=== PATIENT | female | born 1970 | race Caucasian/White ===

== ENCOUNTER → 2021-09-18 11:08 | Outpatient (CLI) | payer OTHER, SELFPAY ==
[2021-09-18 11:55] LABS: COVID19 -Nasal RAPID Negative (Negative)
== END ==
PROVIDERS: PCP Physician Assistant; Referring Provider Orthopaedic Surgery Orthopaedic Surgery of the Spine; Visit Provider Orthopaedic Surgery Orthopaedic Surgery of the Spine
DX: Z20.822 Contact with and (suspected) exposure to COVID-19 (principal)
CPT/HCPCS: 87635; C9803

== ENCOUNTER 2021-09-22 14:29 | Observation (INO) | payer OTHER, SELFPAY ==
[2021-09-21] VITALS (22 sets, daily range): BP systolic 96–146; BP diastolic 57–87; PULSE 73–105; RESP 10–20; TEMP 36.3–37; O2SAT 92–100; BMI 32.5
[2021-09-21] MEDS: LACTATED RINGERS 1,000 ML 42 ML IV ×3 (07:15→10:21)
--- NOTE | 2021-09-21 07:49 | PM.PREOP ---
Pre-operative Note COVID-19 COVID-19 status: Negative Result date/Date tested (Pos, Neg/Pending): 09/20/21 Criteria for continued procedure: Expected advancement of disease process, Possibility delay results in more complex future surgery or treatment, Increased loss of function, Continuing or worsening of significant or severe pain and Deterioration of the patient's condition or overall health Interval Note History & Physical reviewed/Exam performed by Physician: Yes Changes to H&P: No
[2021-09-21] MEDS: CEFAZOLIN 2 GM/100 ML PREMIX 100 ML IV ×3 (08:00→20:09)
--- NOTE | 2021-09-21 08:29 | SUR.OPER ---
Prone on spine table, head in foam head support, padded chest and pelvic supports, gel pad at knees, lower legs supported by pillows; nipples, genitalia and toes free of pressure, arms secured on foam padded arm boards at <90 degrees abduction. Tape over blanket at thigh secured to table.
[2021-09-21] MEDS: BUPIVACAINE LIPOSOME 266 MG/20 ML VIAL INJ (08:38)
[2021-09-21] MEDS: BUPIVACAINE 0.25% (PF) 30 ML, EPINEPHrine 0.3 MG INJ (08:40)
[2021-09-21] MEDS: ACETAMINOPHEN IV 1,000 MG/100 ML VIAL 400 MG IV (11:00)
--- NOTE | 2021-09-21 13:11 | DI.RAD.S_ITS ---
PROCEDURE: XR LUMBAR SPINE 2-3V INDICATIONS: L4-5, L5-S1 TLIF TECHNIQUE: Intraoperative fluoroscopic guidance, 3 images submitted COMPARISON: None. FINDINGS: 3 Intraoperative fluoroscopic images were obtained demonstrating changes from lumbar spine fusion with rods and pedicle screws and interbody spacers. IMPRESSION: Intraprocedural fluoroscopy was provided for guidance and anatomical localization. Please see the procedure report for further details. Dictated by: Apolinar Eaton M.D. on 09/21/2021 at 13:14 Approved by: Apolinar Eaton M.D. on 09/21/2021 at 13:17
--- NOTE | 2021-09-21 13:18 | P.OP_ITS ---
Operative Date/Time/Diagnoses Date of procedure: 09/21/21 Time of procedure: 07:45 Pre-op diagnosis: 1. History of L2-4 fusion with instrumentation 2. L4-5, L5-S1 spinal stenosis with radiculopathy 3. L4-5, L5-S1 spondylosis with radiculopathy Post-op diagnosis: same Procedure & Clinicians Procedure: 1. L4-5, L5-S1 posterolateral and posterior interbody fusion 2. L4-5, L5-S1 posterior interbody cage placement 3. L2-3, L3-4 posterior segmental instrumentation removal 4. L2-3, L3-4 revision laminectomy with exploration of fusion 5. L2-3, L3-4, L4-5, L5-S1 posterior segmental instrumentation with pedicle scr ew placement 6. L2-3 posterolatearl fusion 7. Byers of bone marrow from iliac crest through a separate incision 8. Utilization of microsurgical technique and operating microscope Same procedure as scheduled: Yes Indications: Patient has been having chronic back pain and worsening lumbar radiculopathy. Patient has history of lumbar fusion L2-4 10 years ago. Patient has been having progressively worsening back pain as well as leg pain over the last 2-3 years. Patient failed multiple conservative management with worsening pain weakness and numbness in her lower extremity. Patient has been having difficulty performing activity of daily living. After discussing risks benefits of treatment options, patient elected proceed with surgery. Surgeon: Hussain Millard Automatic Packer Operator: Ibeth Cortes Click Yes if Unassisted: No Anesthesia Type: General Operative Notes Closure Type: primary Specimen(s): none sent Prosthetic devices, grafts, tissues, transplants, or devices: Globus revolve screws, Rise cages Applied: catheter Estimated Blood Loss (mL): 300 Blood products transfused: none Procedure in detail: Patient was seen in the preoperative area. Risks and benefits of the surgery was discussed with the patient. Informed consent was obtained from the patient and placed in the chart. Surgical site was marked. Patient was taken to the operative room. General anesthesia was administered. Prophylactic antibiotic was given to the patient less than 30 min before the incision was made. Patient was placed into a prone position on the Deni table. Patient's back was then prepped and draped in the sterile fashion. Time-out was performed at this time. Using patient's previous scar incision was made over the L2-3 L3-4 interval on the left side. Fascia was incised in line with skin incision. Patient's previously placed hardware over the L2-3 L3-4 level was identified by dissecting down to the level the hardware using a Bovie and a Christensen. The locking caps which was removed using globus screwdriver. The locking jeanie was then removed from the tulips of the pedicle screws using a Destiny. The pedicle screws were then removed using the screwdriver. The screws were found to have good purchase. The Globus and MARS retractors was then placed into the wound and docked onto the L4, L5 lamina using C-arm guidance. Using microsurgical technique and operating microscope a laminectomy facetectomy was performed by removing the L4 and L5 lamina and the L4-5 L5-S1 facet. The disc space at L4-5 L5-S1 level was identified next. And a total diskectomy was performed at L4-5 L5-S1 level. The endplates were decorticated using a rasp and shaver. The total diskectomy and decortication was performed at L4-5 L5-S1 level in order to to accomplish a L4-5 L5-S1 fusion. The local bone from the laminectomy and facetectomy was saved for local bone grafting. After the total diskectomy and decortication was completed, Globus Trifecta bone graft material was combined with local bone that was harvested earlier. At this time, a separate skin is incision was made over the iliac crest. A Jamshidi needle was inserted into the iliac crest through a separate skin incision. 5 cc of bone marrow aspiration was obtained through the separate skin incision using a Jamshidi needle from the iliac crest. The bone marrow aspiration was combined with local bone and the Trifecta bone grafting material. The bone grafting material was placed into the L4-5 L5-S1 interbody space along with a expandable cage. The cage was expanded to its maximum height using the torque limiting screwdriver. At this time a mirror image incision was made on the right side. The fascia was incised in line with the skin incision. Patient's previously placed hardware on the left side was then removed in the same fashion as it was on the right side. The hardware was also found to have good purchase. The fusion mass on the left side was exposed by performing a right-sided hemilaminectomy at L2 and L3 level. The hemilaminectomy was performed using the Kerrison rongeur to undercut the lamina as well removing additional epidural scar tissue for purpose of decompressing the epidural space. The fusion mass was explored and was found have visible motion indicating pseudoarthrosis at L2-3 level. L3-4 level was found to have solid fusion without any signs of loosening. Globus MARS retractor was inserted and docked onto the L2-3 L4-5 L5-S1 posterolateral gutter. Using the power drill, posterior-lateral decortication was performed at L2-3 L4-5 L5-S1 level until bleeding cortical bone was identified. The remaining bone grafting material was placed into the L2-3 L4-5 L5-S1 posterior lateral gutter he order to accomplish posterolateral fusion at the L2-3 L4-5 L5-S1 level. Using the double C-arm technique, pedicle screws were placed into the L2 L3 L4 L5 and S1 pedicles bilaterally. This was done by placing the Jamshidi needle into the pedicles, then placing the guidewires over the Jamshidi needle, and finally placing the cannulated screws over the guidewires bilaterally. After the pedicle screws were placed, 2 titanium rods was locked into the heads of the pedicle screws using locking caps and torque limiting screwdriver. After all the hardware was placed, and confirmed with AP and lateral C-arm imaging, the wound was then irrigated with sterile normal saline and packed with Ray-Andreina gauze for 3 min to accomplish hemostasis. After the gauze was removed the deep fascia was closed with #1 Vicryl suture. The subcutaneous layer was closed with 2-0 Vicryl. The skin was closed with skin keiko. Patient tolerated the procedure well. There were no complications. Complications: none Post-operative Condition: stable Disposition: PACU Plan for aftercare: Admit to inpatient hospital
--- NOTE | 2021-09-21 13:50 | SUR.PHASEI ---
updated mother on pt recovery.
[2021-09-21] MEDS: OXYCODONE IR 5 MG TABLET PO ×2 (14:06→14:51)
[2021-09-21] MEDS: hydrOXYzine pamoate 25 MG CAPSULE 50 MG PO (14:07)
[2021-09-21] MEDS: HYDROMORPHONE 2 MG INJ IV ×5 (14:08→14:52)
--- NOTE | 2021-09-21 14:45 | SUR.PHASEI ---
Handoff to ADELAIDE Figueredo for lunch break Messaged Dr. Boyle for anxiety PRN
--- NOTE | 2021-09-21 15:41 | SUR.PHASEI ---
Pt A&Ox4, appears much more comfortable, VSS, Dressing C/D/I, CMS (+) bilat LE, and ready to transfer to room. Report called to receiving RN using SBAR with time allowed for questions. Pt transferred to room 205 with RN assist.
[2021-09-21] MEDS: NALOXONE 0.4 MG/ML VIAL IV (15:54)
[2021-09-21] MEDS: NALOXONE 0.4 MG/ML VIAL 0.2 MG IV ×4 (16:00→17:09)
[2021-09-21] MEDS: SODIUM CHLORIDE 0.9% 1,000 ML 100 ML IV (16:15)
--- NOTE | 2021-09-21 16:24 | PC.NURSE ---
staff emergency/rapid response 1550 This RN headed to pt's room to admit pt as is just post op as KATHERINE Tinoco to room to check pt's VS. Earnest states that pt is not really responding. sternal rub by this RN unsuccessful, pt is visibly breathing. Staff emergency/rapid response button pushed by this RN. This RN to pixis to obtain narcan. Coordinator, hospitalist, RT, pharmacist, and multiple staff members to room. 1st Narcan administered at 1554 with pt responding to shout/sternal rub following. pt continued to be arousable though less awake then desired, additional doses of narcan administered per verbal order from Dr. Rae (reference EMAR). pt's mom Marcelle present at bedside and supportive. IVF NS infusing at 100cc/hr without difficulty.
--- NOTE | 2021-09-21 16:52 | P.EN_ITS ---
Event Note Date Patient Seen: 09/21/21 Time Patient Seen: 16:00 Event Note (Rapid Response, Code, or fall): Rapid response called at 1550 for patient unresponsive and labored breathing. Pulses present. Breaths markedly shallow and diminished. Lips blue and skin mottled and diaphoretic. Per staff patient had received IV and PO opiates in PACU s/p elective spinal surgery. Family at bedside who state patient has responded like this to opiates previously. Bagging for respiratory support st arted. Vitals noted to be normal blood pressure, sinus tachy in 100s-110s. Narcan administered with minor effect. Three additional doses administered and patient with notably improved respiratory drive. She was responding to voice, and protecting airway. Bagging stopped and repeat vitals showed normal blood pressure, o2 sat 96-98% on room air. She was still lethargic and nursing will inform attending clinical change. Continue with close monitoring and avoid opiates as much as possible.
[2021-09-21] MEDS: ONDANSETRON 4 MG/2 ML INJ IV ×2 (16:59→20:33)
--- NOTE | 2021-09-21 17:49 | PC.NURSE ---
Addendum entered by Suyapa Canales R.N. 09/21/21 18:58: Patient is alert and oriented x4 now, her sats do decrease a small amount when patient falling asleep. Staff checking on patient every 15 minutes. Mom in room and attentive to care. Original Note: Assess- Patient to floor around 1530, she is alert and oriented x4, answering questions appropriately and able to log roll to side when assessing her dressing and skin. Patient had a total of 4.5mg of iv dilaudid down in pacu, oxycodone 10mg, and 5omg im vistaril. When she came to the floor as previously stated she was talking and alert. Around 1550, float RN and private tutor doing vitals and helping with admission. Patient became unresponsive, clammy, and peaked in color. Staff emergency called. present with RN from ER, coordinator, and multiple Rns.. She has been narcaned 5 times, the last one being around 1720. She was complaining of nausea and Zofran given. Patient was bagged initially for breathing with strong heart beat. She is awake and talking some. CHARTER SCHOOL EXECUTIVE DIRECTOR in room as we want to keep a close eye on her breathing and respirations. Patient is talking and mother is in room. Narcan at bedside if needed. 1803- Patient is now talking and is A&Ox4. She knows to take deep breaths. She reports having pain to her sternum, staff did do a sternal rub to try and wake patient up earlier.
[2021-09-21] MEDS: OXYCODONE IR 5 MG TABLET 10 MG PO ×2 (20:06→23:16)
[2021-09-21] MEDS: ACETAMINOPHEN 325 MG TABLET 650 MG PO (20:06)
[2021-09-21] MEDS: DOCUSATE 100 MG CAPSULE PO (20:06)
[2021-09-21] MEDS: AMITRIPTYLINE 25 MG TABLET 75 MG PO (20:07)
[2021-09-21] MEDS: GABAPENTIN 300 MG CAPSULE 600 MG PO (20:08)
[2021-09-21] MEDS: SENNOSIDES 8.6 MG TABLET 17.2 MG PO (20:09)
[2021-09-22] VITALS: BP 118/64; PULSE 86; RESP 18; TEMP 36.3; O2SAT 93
--- NOTE | 2021-09-22 01:07 | RT ---
Pt continues on CPAP unit, SpO2 94%, HR 89 BPM, tolerating well, will cont. to monitor.
[2021-09-22] MEDS: SODIUM CHLORIDE 0.9% 1,000 ML 100 ML IV (02:28)
[2021-09-22] MEDS: CEFAZOLIN 2 GM/100 ML PREMIX 100 ML IV (04:01)
[2021-09-22 04:09] VITALS: BP 114/60; PULSE 90; RESP 18; TEMP 36.4; O2SAT 95
[2021-09-22 05:15] LABS: Hemoglobin 10.2 g/dL (12.0-16.0)
[2021-09-22] MEDS: OXYCODONE IR 5 MG TABLET 10 MG PO (06:22)
--- NOTE | 2021-09-22 07:09 | PM.PNPO.1 ---
Subjective Subjective Date Patient Seen: 09/22/21 Time Patient Seen: 07:09 Interval history: Rapid response called at 1550 yesterday for patient unresponsive and labored breathing. Vitals noted to be normal blood pressure, sinus tachy in 100s-110s. Narcan administered x 4 doses patient with notably improved respiratory drive. Recommendation from hospitalist to avoid narcotics. Noted that she received oxycodone 10 mg this morning about 30 minutes prior to my visit; pt states she is feeling fine. Pt c/o back pain, denies leg pain. Discussed narcotics with her, suggested decreasing oxycodone dose and starting tramadol, which has less respiratory drive suppression. Pt states she has been taking tramadol 50 mg BID for 6 months with little effect on pain; assured her we would increase dosing in hospital. Plan is to go home with parents when appropriate for discharge. Exam Vital Signs (past 8 hours): - 09/22/21 00:00 09/22/21 04:09 Temperature 97.3 F L 97.6 F Pulse Rate 86 90 Respiratory Rate 18 18 Blood Pressure 118/64 114/60 Pulse Oximetry 93 95 Oxygen Flow Rate 0 0 Oxygen Delivery Method Room Air Oxygen Flow Rate 0 Narrative Exam Narrative: RN reports BP 90s/40s since last EHR recorded BP. 5/5 strength in hip flexors, quadriceps, hamstrings, DF, PF, EHL bilaterally. Sensation to light touch intact in BLE. Calves soft, compressible, nontender and without palpable cords or masses. Low back dressing placed intraoperatively is CDI. Objective Labs Result Diagrams: 09/22/21 04:55 Labs: Laboratory Results - last 24 hr 09/22/21 04:55 Hgb 10.2 L Hct 30.0 L PFSH Medical History (Updated 09/22/21 @ 07:17 by Ibeth Cortes PA-C) Chronic back pain Hx of sleep apnea Hypertension Migraines Surgical History (Updated 09/22/21 @ 07:17 by Ibeth Cortes PA-C) H/O abdominoplasty H/O shoulder surgery H/O: hysterectomy History of back surgery Hx of gastric bypass Hx of plastic surgery Social History household members: none Smoking Status: Former smoker alcohol intake: current Assessment & Plan Post-op Assessment and plan (1) S/P lumbar fusion: Assessment and Plan narrative: Will change oxycodone from 10mg to 5mg q 3 hr for severe pain. Will add tramadol 50 mg q 4 hr for moderate pain. D/c hydromorphone. No NSAIDs d/t h/o gastric bypass. PT/OT today; plan to d/c home w/ parents when cleared by PT, pain well-controlled, and VSS. (2) Acute postoperative anemia due to expected blood loss: Assessment and Plan narrative: Asymptomatic, no intervention needed at this time. (3) Hypotension: Assessment and Plan narrative: Continue IVF - NS @ 100 ml/hr. Will hold lisinopril today. Postoperative Procedures: Procedures Operation Date: 09/21/21 07:45 Actual Procedure Side Surgeon p L4-5, L5-S1 TLIF w. posterior instrumentation, L2-S1 PSF w. instrumentation Hussain Millard MD Postoperative day: 1 Quality VTE Deep Vein Thrombosis/Pulmonary Embolism Present on Admission: No
[2021-09-22 08:00] VITALS: BP 98/64; PULSE 81; RESP 16; TEMP 36.3; O2SAT 99
--- NOTE | 2021-09-22 08:53 | CM.DANOTE ---
DCP: Case received, EMR reviewed and met with patient. Patient's mother, Marcelle, was at bedside. Introduced self and role. Was able to obtain information regarding patient's baseline activity level prior to surgery. DCP assessment completed with information currently available. Patient is a 50 year old female who admitted yesterday morning to the care of the orthopedic team. PCP: Dr. Lancaster. Payer: confirmed: [employer]. Patient came to the hospital for a surgical procedure. Patient had L4-5, L5-S1 posterolateral and posterior interbody fusion. Patient has history of spinal stenosis, and spondylosis. She has had chronic back pain. Met with patient in her room. She was awake, laying in bed. Patient's mother at bedside. Confirmed that she resides in [place], her mother lives nearby. Patient is currently employed at [employer]. Asked patient if she uses any DME supplies at her baseline, stated, she doesn't, just uses shopping cart. Confirmed with patient that she has fallen at work, usually after she has her cortisone injections. Also confirmed that her mother will be assisting her when she goes home, has a ramp to get into the house. Patient has not yet worked with P.T. P:DCP to continue to follow. Plan is home when stable and is cleared with P.T. Neetu Monte RN/Service Delivery Director Discharge Planning/Care Management CM Discharge Assessment Start: 09/22/21 08:51 Freq: Status: Active Protocol: Document 09/22/21 08:51 (Rec: 09/22/21 08:53 [id number]) Discharge Planning Assessment Assigned Environmental Services Floor Tech Neetu Monte RN/Service Delivery Director Advance Directives? No History Provided By Patient,Medical Record Prior Living Arrangements House Household Members none Type of transporation used prior to Drives own vehicle admit Independent with ADL's Yes Is patient alert and oriented? Yes Caregiver for Another No Barriers to Discharge No Comment Patient's mother will be assisting her, lives near by. Discharge Plan Home Transportation Arrangement Family Referrals Initiated None needed Additional Comment Will see how patient does with P.T. Whiteboard Updated in Patient Room with Yes name and ext. # of Environmental Services Floor Tech Review Status In Process Next Review Type Continued Stay Review Pre-Anesthesia Assessment Start: 09/14/21 13:31 Freq: Status: Active Protocol: Document 09/14/21 13:31 CAB (Rec: 09/14/21 14:10 CAB [id number]) Pre-Anesthesia Assessment PAC Comment Unable to reach pt by phone for scheduled PAC assessment. Previous medical/medication history not identified. Surgeon H&P not available at time of review, unable to complete PAC Patient Information Reviewed Via Phone Assessment Assessment Completed With Patient Comment COVID screen @ 09/18/21
--- NOTE | 2021-09-22 09:15 | PT.IIE ---
Current Diagnoses Acute posthemorrhagic anemia (09/21/21) Hypotension, unspecified (09/21/21) Spondylolisthesis, lumbar region (09/21/21) Spinal stenosis, lumbar region with neurogenic claudication (09/21/21) Arthrodesis status (09/21/21) Surgery Performed Operation Date: 09/21/21 07:45 Actual Procedures p L4-5, L5-S1 TLIF w. posterior instrumentation, L2-S1 PSF w. instrumentation - Hussain Millard MD Surgical History (Last Updated 09/21/21 @ 07:10 by Jessica Ramirez RN) H/O abdominoplasty H/O shoulder surgery H/O: hysterectomy History of back surgery Hx of gastric bypass Hx of plastic surgery Medical History (Last Updated 09/21/21 @ 07:24 by Jessica Ramirez RN) Chronic back pain Hx of sleep apnea Hypertension Migraines Physical Therapy Inpatient Evaluation/Re-Eval M1 PT/OT-IP Prior Functional Status Start: 09/22/21 11:53 Freq: NEEDED Status: Active Protocol: Document 09/22/21 09:15 AB (Rec: 09/22/21 12:24 AB [id number]) Medical Review Prior Functional Status Medical History Reviewed Yes Communication able to make needs known Mobility and Gait pt stated that she is modified independent with all mobilities and ambulation without AD Social History Household Members none Living Arrangements House Number of Floors (Floors) Two Floors Number of Stairs To Enter/Railing? no steps to enter; pt stays on main level of the house Home Environment High Toilet,Walk in Shower Home Equipment Front Wheel Walker,Shower Seat with Backrest,Hand Held Shower,Grab Bars In Shower Additional Social History Comment pt's parents live 50 ft away and will have her mother assist her pt has an adjustable bed M2 PT-IP Current Condition Start: 09/22/21 11:53 Freq: NEEDED Status: Active Protocol: Document 09/22/21 09:15 AB (Rec: 09/22/21 12:24 AB [id number]) Physical Therapy Current Condition Current Condition Evaluation Date 09/22/21 Treatment Diagnosis s/p L2-3,3-4,4-5, L5S1 TLIF; difficulty in walking Onset Date 07/22/21 M3 PT-IP Subjective Start: 09/22/21 11:53 Freq: NEEDED Status: Active Protocol: Document 09/22/21 09:15 AB (Rec: 09/22/21 12:24 AB [id number]) Subjective Physical Therapy Visit Type Type Initial Evaluation Visit Start Time 09:15 Visit Stop Time 09:55 Total Visit Minutes 40 Number of PANEL RAISER OPERATOR Visits 0 Physical Therapy Visit Comments Patient Comments agreeable to do PT M4 PT-IP Mobility and Gait Start: 09/22/21 11:53 Freq: NEEDED Status: Active Protocol: Document 09/22/21 09:15 AB (Rec: 09/22/21 12:24 AB [id number]) PT-Bed Mobility Assessment Rolling Type of Rolling Log Rolling Level of Assist Maximal Assistance,1 Person Assistance Supine to Sit Supine to Sit Maximum Assistance,Head of Bed Elevated PT-Transfer Assessment Sit to and From Stand Sit to and from Stand Moderate Assistance,Maximum Assistance,1 Person Assistance ,Use of Upper Extremities Equipment Transfer Assistive Device Gait Belt,Front Wheeled Walker Orthotic/Prosthetic Devices or Brace: No Transfers Transfer Destination Chair Transfer Technique Stand Step Pivot Transfer Ability Level of Assist Moderate Assistance,Maximum Assistance,1 Person Assistance ,Use of Upper Extremities Comments Mobility Comments educated pt regarding back precautions and log roll bed mobility. BP in supine: 104/ 68completed bed mobility log roll supine to sit max A and max cues. able to sit on EOB SBA. c/o increase back pain of 10/10. BP in sittin/ 84. completed sit to stand mod to max a and max cues. completed step transfer to chair using FWW mod A to max A and max cues. unable to do more activities but agreed to sit up on chair. positioned on chair. call light and table placed within reach. Gait Assessment Gait Gait Assistance Required: Maximum Assistance,1 Person Assist Distance (Feet) 2 Able to Maintain Weight Bearing Status Yes During Gait Assistive Devices Assistive Device Gait Belt,Front Wheeled Walker Orthotic/Prosthetic Devices or Brace: No Gait Deviations General Gait Pattern Antalgic,Decreased Stride Length,Decreased Feet Clearance,Step-to Gait Factors Limiting Gait Function Factors Limiting Gait Function Decreased Activity Tolerance, Decreased Strength,Limited Range of Motion,Pain,Poor Balance,Poor Safety Awareness Comments Gait Comments took steps during transfer PT-Balance Assessment Sitting Balance and Reactions Static Sitting Balance Ability Good Dynamic Sitting Balance Ability Good Standing Balance and Reactions Static Standing Balance Ability Fair Dynamic Standing Balance Ability Fair Device Used FWW M5 PT-IP Objective Assessments Start: 09/22/21 11:53 Freq: NEEDED Status: Active Protocol: Document 09/22/21 09:15 AB (Rec: 09/22/21 12:24 AB [id number]) Orientation Orientation/Cognition Level of Alertness Alert Orientation Name Safety Awareness Decreased Safety Awareness Memory Description No Deficits Noted Gross Range of Motion Lower Extremity ROM Assessment Within Functional Limits Strength Lower Extremity Strength Assessment Left Impaired Hip 3+/5 Knee 3+/5 Sensation Assessment Sensation Gross Sensation WNL Muscle Tone Muscle Tone WNL Yes M6 PT-IP Treatment Start: 09/22/21 11:53 Freq: NEEDED Status: Active Protocol: Document 09/22/21 09:15 AB (Rec: 09/22/21 12:24 AB [email or web address]) Physical Therapy Treatment Education Education Provided Precautions,Weight Bearing Status,Post-Op Packet,Safety M7 PT-IP Assessment and Plan Start: 09/22/21 11:53 Freq: NEEDED Status: Active Protocol: Document 09/22/21 09:15 AB (Rec: 09/22/21 12:24 AB [id number]) PT Summary Assessment and Plan Potential Rehabilitation Potential Fair Status of Condition at Evaluation Evolving Summary Impairments Pain,ROM,Strength,Balance, Coordination,Sensation,Tone, Cognition,Bed Mobility, Transfers,Gait,Activity Tolerance Assessment Summary Pt requiring mod to max A with mobility using FWW and unable to tolerate much activity with c/o increase LBP to 10/10 . d/c plan depending on progress. will conduct caregiver training when appropriate. Goals Bed Mobility Goal Standby Assistance Transfer Goal Standby Assistance,Front Wheeled Walker Gait Goal Standby Assistance,Front Wheel Walker Gait Distance 150 Days to Meet Goals 10 Frequency of Treatment Frequency Of Treatment Twice a Day Treatment Plan Physical Therapy Treatment Plan Bed Mobility Training,Transfer Training,Gait Training, Therapeutic Exercise,Balance Retraining,Post Op Education, Discharge Planning,Hot or Cold Pack,Neuromuscular Re-ed, Coordination Retraining,Manual Therapy Precautions Lumbar Precautions Log Roll,No Twisting,Limit Bending,Lifting Restriction of 10 lbs,Gait Belt above Incisional Area Recommendations To Nursing Amount of Assist Needed 1 Person Assist Discharge Recommendations PT Discharge Recommendations Home with 30/08 Assist Available,Home Health,SNF Rehab,Home vs SNF Transportation Needs at Discharge Private Vehicle,Wheelchair/ Cabulance
[2021-09-22] MEDS: ATORVASTATIN 20 MG TABLET 40 MG PO (09:31)
[2021-09-22] MEDS: OXYCODONE IR 5 MG TABLET PO ×2 (09:32→21:02)
[2021-09-22] MEDS: DOCUSATE 100 MG CAPSULE PO ×2 (09:32→21:03)
[2021-09-22] MEDS: GABAPENTIN 300 MG CAPSULE 600 MG PO ×2 (09:32→21:02)
[2021-09-22] MEDS: ROPINIROLE 1 MG TABLET 2 MG PO (09:33)
[2021-09-22] MEDS: FERROUS SULFATE 325 MG TABLET PO (09:34)
[2021-09-22] MEDS: ONDANSETRON 4 MG/2 ML INJ IV (10:06)
--- NOTE | 2021-09-22 11:28 | OT.IP.EVAL ---
Current Diagnoses Acute posthemorrhagic anemia (09/21/21) Hypotension, unspecified (09/21/21) Spondylolisthesis, lumbar region (09/21/21) Spinal stenosis, lumbar region with neurogenic claudication (09/21/21) Arthrodesis status (09/21/21) Surgery Performed Operation Date: 09/21/21 07:45 Actual Procedures p L4-5, L5-S1 TLIF w. posterior instrumentation, L2-S1 PSF w. instrumentation - Hussain Millard MD Past Medical History (Last Updated 09/21/21 @ 07:24 by Jessica Ramirez, RN) Chronic back pain Hx of sleep apnea Hypertension Migraines Surgical History (Last Updated 09/21/21 @ 07:10 by Jessica Ramirez, RN) H/O abdominoplasty H/O shoulder surgery H/O: hysterectomy History of back surgery Hx of gastric bypass Hx of plastic surgery Occupational Therapy Inpatient Evaluation/Re-Eval M2 OT-IP Current Condition Start: 09/22/21 11:39 Freq: Status: Active Protocol: Document 09/22/21 11:05 [facility] (Rec: 09/22/21 11:59 [facility] [id number]) Occupational Therapy Current Condition Current Condition Evaluation Date 09/22/21 Treatment Diagnosis S/P L4-5, L5-S1 TLIF with posterior inst. L2-S1 PSF with inst. Diagnosis Onset Date 09/21/21 Post Operative Precautions Lumbar Precautions Log Roll,No Twisting,Limit Bending,Lifting Restriction of 10 lbs,Gait Belt above Incisional Area M3 OT- IP Subjective and Pain Start: 09/22/21 11:39 Freq: Status: Active Protocol: Document 09/22/21 11:05 [facility] (Rec: 09/22/21 11:59 [facility] [id number]) OT- Subjective Occupational Therapy Visit Type Type Initial Evaluation Visit Start Time 11:05 Visit Stop Time 11:28 Total Visit Minutes 23 Occupational Therapy Visit Comments Patient Comments Pt wanting to get back to bed. Patient/Caregiver Goals TO go home. OT Pain Assessment Pain When Pain Assessed During Mobility Pain Present Pain Present Pain Reported Location back Intensity 7 Scale Used Numeric (0 - 10) Management Techniques Re-positioning M4 OT- IP ADL's Start: 09/22/21 11:39 Freq: Status: Active Protocol: Document 09/22/21 11:05 [facility] (Rec: 09/22/21 11:59 [facility] [id number]) OT [id number] Comments OT Self-Feeding Comments Not at meal time. OT ADL-Grooming Comments OT Grooming Comments Not performed, pt just wanting to get back to bed. OT ADL-Oral Care Comments Oral Care Comments Not performed. OT ADL-Dressing General Eval Lower Body Dressing Ability Maximum Assistance Comments OT Dressing Comments Pt not able to gabriela/doff her socks at this time and showed pt sock aid and had pt practice. pt's mom has a grinder and plater that she can use at home. OT ADL-Toileting General Evaluation Toileting Ability Total Assistance Comments OT Toileting Comments [place] in place. Pt states either wipes from the front or stands to wipe. Suggested use of wipes, to stand to wipe would be best to follow her back precautions at this time. In addition to try to taper her liquid intake by evening and use of briefs to prevent from rushing to the bathroom. OT ADL-Bathing Comments OT Bathing Comments Not performed as pt too tired and in pain. M5 OT- IP IADL's Start: 09/22/21 11:39 Freq: Status: Active Protocol: Document 09/22/21 11:05 [facility] (Rec: 09/22/21 11:59 [facility] [id number]) OT-Instrumental Activities of Daily Living Home Safety Awareness Awareness of Need for Assistance at Home Good Awareness Home Safety Comments Pt has a supportive mother that is available to assist that lives 50ft away. Medication Management Medication Management Comments Pt's mom to be able to assist as needed. Money Management Money Management Comments Pt's mom to be able to assist as needed. Meal Preparation Meal Preparation Comments Pt's mom to be able to assist. Military Cook Military Cook Comments Pt's mom to be able to assist. M6 OT- IP Functional Cognition Start: 09/22/21 11:39 Freq: Status: Active Protocol: Document 09/22/21 11:05 [facility] (Rec: 09/22/21 11:59 [facility] [id number]) Cognitive Factors Limiting Selfcare Function Cognitive Ability Level of Alertness Alert,Drowsy Patient Orientation Name,Place,Situation Attention Span Ability Capable of Focused Attention, Capable of Sustained Attention Ability to Follow Commands Able to Follow One Step Commands Cognitive Comments Cognitive Assessment Comments Pt able to recall her back precautions and follow commands for ADL and mobility needs today. OT- Vision and Hearing OT- Hearing Assessment OT- Hearing Assessment WFL M7 OT- IP Mobility and Balance Start: 09/22/21 11:39 Freq: Status: Active Protocol: Document 09/22/21 11:05 [facility] (Rec: 09/22/21 11:59 [facility] [id number]) OT- Bed Mobility Assessment Sit to Supine Sit to Supine Assist Moderate Assistance OT-Transfer Assessment Sit to and From Stand Sit to and from Stand Minimal Assistance Transfers Transfer Ability Minimal Assistance Technique Transfer Destination Bed,Chair Devices Transfer Assistive Devices Gait Belt,Front Wheeled Walker Comments Mobility Comments MARINO to stand to FWW and assist to help guide the FWW and steady the pt. BP sitting 108/60 and standing 104/71. OT- Balance Assessment Sitting Balance and Reactions Static Sitting Balance Ability Good Dynamic Sitting Balance Ability Good Standing Balance and Reactions Static Standing Balance Ability Fair Dynamic Standing Balance Ability Poor M8 OT- IP Objective Assessments Start: 09/22/21 11:39 Freq: Status: Active Protocol: Document 09/22/21 11:05 [facility] (Rec: 09/22/21 11:59 [facility] [id number]) OT-Muscle Tone Assessment Muscle Tone WNL Yes M9 OT- IP Assessment and Plan Start: 09/22/21 11:39 Freq: Status: Active Protocol: Document 09/22/21 11:05 [facility] (Rec: 09/22/21 11:59 [facility] [id number]) OT Summary Assessment and Plan Potential Rehabilitation Potential Good Analytic Complexity at Evaluation Low Summary OT Impairments Pain,Balance,Functional Mobility,Dressing,Toileting, Bathing,Toilet Transfers, Shower Transfers,Activity Tolerance Progress Towards Goals Slow Progress due to Pain,Slow Progress due to Medical Issues,Slow Progress due to Activity Tolerance Assessment Summary Pt low complexity and main barriers are pain, and now needing one person assist for ADl and mobility needs. Pt's mother to be available / but not be able to stay with her as she lives just 50ft away. Looking to do caregiver training tomorrow for showering and dressing needs. Pt to go home with 24/7 available assist when medically stable. Goals Grooming Goal Independent Dressing Goal Minimal Assistance Toileting Goal Independent Bathing Goal Minimal Assistance Toilet Transfer Goal Independent Shower Transfer Goal Standby Assistance Days to Meet Goals 4 Frequency of Treatment Frequency Of Treatment Once a Day Treatment Plan OT Treatment Plan ADL Training,Functional Mobility,Patient/Family Education,Discharge Planning Other Treatment Recommendations and Next shower/caregiver training Treatment Focus Discharge Recommendations OT Discharge Recommendations Home with 24/ Assist Available Transportation Needs at Discharge Private Vehicle
[2021-09-22] MEDS: GABAPENTIN 300 MG CAPSULE PO ×2 (12:14→18:05)
--- NOTE | 2021-09-22 12:57 | PT-IP ANOTE ---
Attempted to see pt at 12:53, pt sleeping but woke easily. She refused PT this PM due to high pain in low back and feels she is not able to tolerate OOB mobility this afternoon. Requests PT to return tomorrow.
[2021-09-22 13:30] VITALS: BP 94/49; PULSE 102; TEMP 37.5; O2SAT 99
[2021-09-22] MEDS: SODIUM CHLORIDE 0.9% 500 ML 1000 ML IV (14:48)
[2021-09-22 17:00] VITALS: BP 126/67; PULSE 100; RESP 16; TEMP 37.3; O2SAT 98
[2021-09-22 19:59] VITALS: BP 102/57; PULSE 93; RESP 18; TEMP 36.7; O2SAT 98
[2021-09-22] MEDS: SENNOSIDES 8.6 MG TABLET 17.2 MG PO (21:02)
[2021-09-22] MEDS: AMITRIPTYLINE 25 MG TABLET 75 MG PO (21:02)
[2021-09-23 00:41] VITALS: BP 98/56; PULSE 108; RESP 18; TEMP 37.1; O2SAT 94
--- NOTE | 2021-09-23 03:06 | PC.NURSE ---
Patient desats to upper 80's RA when removing CPAP, she was made aware and agreeable to put CPAP back on, O2 98% wearing CPAP.
[2021-09-23] MEDS: OXYCODONE IR 5 MG TABLET PO ×2 (04:55→09:00)
[2021-09-23 05:00] VITALS: BP 105/58; PULSE 89; RESP 18; TEMP 36.5; O2SAT 99
--- NOTE | 2021-09-23 08:17 | PM.PNPO.1 ---
Subjective Subjective Date Patient Seen: 09/23/21 Time Patient Seen: 08:17 Interval history: Pt sitting up in bed, eating breakfast, much more comfortable today. Catheter d/c ordered yesterday, but catheter is still in. Pt did not work w/ PT yesterday afternoon due to pain, will work with them this morning to ensure she is able to discharge safely with family. Exam Vital Signs (past 8 hours): - 09/23/21 00:41 09/23/21 05:00 Temperature 98.7 F 97.7 F Pulse Rate 108 H 89 Respiratory Rate 18 18 Blood Pressure 98/56 L 105/58 L Pulse Oximetry 94 99 Oxygen Flow Rate 0 0 Oxygen Delivery Method Room Air Oxygen Flow Rate 0 Objective Labs Result Diagrams: 09/22/21 04:55 PFSH Medical History (Updated 09/22/21 @ 07:17 by Ibeth Cortes PA-C) Chronic back pain Hx of sleep apnea Hypertension Migraines Surgical History (Updated 09/22/21 @ 07:17 by Ibeth Cortes PA-C) H/O abdominoplasty H/O shoulder surgery H/O: hysterectomy History of back surgery Hx of gastric bypass Hx of plastic surgery Social History household members: none Smoking Status: Former smoker alcohol intake: current Assessment & Plan Post-op Assessment and plan (1) S/P lumbar fusion: Assessment and Plan narrative: Discontinue [place]. Discharge home after PT today if PT agrees. (2) Hypotension: Assessment and Plan narrative: Resolved, but will hold lisinopril today as well. (3) Acute postoperative anemia due to expected blood loss: Assessment and Plan narrative: Asymptomatic, no treatment required. Postoperative Procedures: Procedures Operation Date: 09/21/21 07:45 Actual Procedure Side Surgeon p L4-5, L5-S1 TLIF w. posterior instrumentation, L2-S1 PSF w. instrumentation Hussain Millard MD Quality VTE Deep Vein Thrombosis/Pulmonary Embolism Present on Admission: No
--- NOTE | 2021-09-23 08:30 | P.DS_ITS ---
History of Present Illness History of Present Illness Date Patient Seen: 09/23/21 Time Patient Seen: 08:30 Chief complaint: TLIF *OPB* Narrative: Operative Date/Time/Diagnoses Date of procedure: 09/21/21 Time of procedure: 07:45 Pre-op diagnosis: 1. History of L2-4 fusion with instrumentation 2. L4-5, L5-S1 spinal stenosis with radiculopathy 3. L4-5, L5-S1 spondylosis with radiculopathy Post-op diagnosis: same Procedure & Clinicians Procedure: 1. L4-5, L5-S1 posterolateral and posterior interbody fusion 2. L4-5, L5-S1 posterior interbody cage placement 3. L2-3, L3-4 posterior segmental instrumentation removal 4. L2-3, L3-4 revision laminectomy with exploration of fusion 5. L2-3, L3-4, L4-5, L5-S1 posterior segmental instrumentation with pedicle screw placement 6. L2-3 posterolatearl fusion 7. [place] of bone marrow from iliac crest through a separate incision 8. Utilization of microsurgical technique and operating microscope Same procedure as scheduled: Yes Indications: Patient has been having chronic back pain and worsening lumbar radiculopathy. Patient has history of lumbar fusion L2-4 10 years ago.? Patient has been having progressively worsening back pain as well as leg pain over the last 2-3 years. Patient failed multiple conservative management with worsening pain weakness and numbness in her lower extremity.? Patient has been having difficulty performing activity of daily living.? After discussing risks benefits of treatment options, patient elected proceed with surgery. Surgeon: Hussain Millard Food Services Coordinator: Ibeth Cortes Click Yes if Unassisted: No Anesthesia Type: General Operative Notes Closure Type: primary Specimen(s): none sent Prosthetic devices, grafts, tissues, transplants, or devices: Globus revolve screws, Rise cages Applied: catheter Estimated Blood Loss (mL): 300 Blood products transfused: none Discharge Providers Provider Date of admission: 09/22/21 14:29 Discharge Date: 09/23/21 Primary care physician: Haydee Lancaster PA-C Consults: 09/21/21 15:54 Consult to Occupational Therapy Evaluate & Treat Comment: Physician Instructions: Evaluate and treat Consult to Physical Therapy Evaluate & Treat Comment: Physician Instructions: Evaluate and Treat Discharge provider: Ibeth Cortes PA-C Summary Hospital Course Discharge Diagnosis: s/p lumbar fusion, hardware removal, instrumented posterior fusion Hospital Course: Ms Hebert's hospital course was remarkable for an episode of respiratory depression following surgery that was corrected with narcan x 4. Her postoperative medications were changed to tramadol and decreased amount of oxycodone. On POD#2, she was feeling well and wanted to go home with family. Her lisinopril was held throughout her hospital stay due to periods of hypotension. She was evaluated by PT throughout her stay. Exam Vital Signs (past 8 hours): - // 00:41 09/23/ 05:00 Temperature 98.7 F 97.7 F Pulse Rate 108 H 89 Respiratory Rate 18 18 Blood Pressure 98/56 L 105/58 L Pulse Oximetry 94 99 Oxygen Flow Rate 0 0 Oxygen Delivery Method Room Air Oxygen Flow Rate 0 Narrative Exam Narrative: 5/5 strength in hip flexors, quadriceps, hamstrings, DF, PF, EHL bilaterally. Sensation to light touch intact in BLE. Calves soft, compressible, nontender and without palpable cords or masses. Dressing placed intraoperatively CDI. Objective Labs Result Diagrams: 09/22/21 04:55 PFSH Medical History (Updated 09/22/21 @ 07:17 by Ibeth Cortes PA-C) Chronic back pain Hx of sleep apnea Hypertension Migraines Surgical History (Updated 09/22/21 @ 07:17 by Ibeth Cortes PA-C) H/O abdominoplasty H/O shoulder surgery H/O: hysterectomy History of back surgery Hx of gastric bypass Hx of plastic surgery Social History household members: none Smoking Status: Former smoker alcohol intake: current Discharge Assessment & Plan Assessment and Plan Assessment: s/p lumbar fusion, hardware removal, instrumented posterior fusion Plan of Treatment: Discharge home. F/u in office in 2 weeks. Discharge Plan Discharge Plan Patient Disposition: Home Discharge orders & Medications Prescriptions: New acetaminophen 325 mg Tablet 650 mg PO Q6HR PRN (Reason: Pain, Mild (1-3)) Qty: 360 0RF docusate sodium 100 mg Capsule 100 mg PO BID PRN (Reason: constipation) Qty: 60 1RF hydroxyzine pamoate 25 mg Capsule 25 mg PO Q4HR PRN (Reason: muscle spasm) Qty: 180 1RF oxycodone 5 mg Tablet 5 mg PO Q3HR PRN (Reason: Pain, Severe (7-10)) Qty: 60 0RF tramadol 50 mg Tablet 50 mg PO Q4H PRN (Reason: Pain, Moderate (4-6)) Qty: 120 0RF Continued lisinopril 20 mg Tablet 20 mg DAILY gabapentin 300 mg Capsule 600 mg PO BID Label Comments: at am and bedtime gabapentin 300 mg Capsule 300 mg PO BID Rx Instructions: at lunch and dinner time ferrous sulfate 325 mg (65 mg iron) Capsule, Extended Release 325 mg PO DAILY amitriptyline 75 mg ONCE HS ropinirole 2 mg DAILY atorvastatin 40 mg Tablet 40 mg DAILY rizatriptan 10 mg Tablet 10 mg PRN PRN (Reason: Pain (Scale Score 7-10)) Rx Instructions: for migraines Vitamin D3 1,000 units DAILY Discontinued tramadol 50 mg Tablet 50 mg DAILY Follow up/Referrals: Haydee Lancaster PA-C [Primary Care Provider] - Hussain Millard MD [Physician] - As previously scheduled (Follow up w/ Pam Vasquez PA-C, on 10/06/2021 @ 2:00 pm at [facility] in [place].) Diet/Activity/Treatments Diet: Diet as Tolerated Activity: No bending at the waist more than 90 degrees. No extreme twisting at the waist. Cold/Heat Therapy: Ice to back as needed for pain. Skin/Wound/Dressing Care Report to your healthcare provider any signs of infection, such as:: chills, fever, night sweats, unusual drainage and unusual redness Dressing: May shower; keep dressing as dry as possible. If dressing becomes wet, may replace with clean, dry gauze. Do not put any creams, lotions, or ointments on incisions. No bathing or otherwise soaking incisions. Visit Report/Discharge Packet Instructions: DI for Prescription Opioid Use, DI for Transforaminal Lumbar Int erbody Fusion Stand Alone Forms: Surgery Discharge Discharge Data Primary Care Provider: Haydee Lancaster Attending Provider: Hussain Millard Quality VTE Deep Vein Thrombosis/Pulmonary Embolism Present on Admission: No
[2021-09-23] MEDS: GABAPENTIN 300 MG CAPSULE 600 MG PO (08:59)
[2021-09-23] MEDS: DOCUSATE 100 MG CAPSULE PO (08:59)
[2021-09-23] MEDS: ATORVASTATIN 20 MG TABLET 40 MG PO (08:59)
[2021-09-23 09:00] VITALS: BP 122/62; PULSE 98; RESP 19; TEMP 36.7; O2SAT 100
[2021-09-23] MEDS: FERROUS SULFATE 325 MG TABLET PO (09:00)
--- NOTE | 2021-09-23 09:36 | PT.IPTN ---
Current Diagnoses Acute posthemorrhagic anemia (09/22/21) Hypotension, unspecified (09/22/21) Spondylolisthesis, lumbar region (09/22/21) Spinal stenosis, lumbar region with neurogenic claudication (09/22/21) Arthrodesis status (09/22/21) Surgery Performed Operation Date: 09/21/21 07:45 Actual Procedures p L4-5, L5-S1 TLIF w. posterior instrumentation, L2-S1 PSF w. instrumentation - Hussain Millard MD Physical Therapy Treatment Note M2 PT-IP Current Condition Start: 09/22/21 11:53 Freq: NEEDED Status: Active Protocol: Document 09/22/21 09:15 AB (Rec: 09/22/21 12:24 AB [id number]) Physical Therapy Current Condition Current Condition Evaluation Date 09/22/21 Treatment Diagnosis s/p L2-3,3-4,4-5, L5S1 TLIF; difficulty in walking Onset Date 07/22/21 M3 PT-IP Subjective Start: 09/22/21 11:53 Freq: NEEDED Status: Active Protocol: Document 09/23/21 09:13 KS (Rec: 09/23/21 11:32 KS [id number]) Subjective Physical Therapy Visit Type Type Treatment Note Visit Start Time 09:13 Visit Stop Time 09:36 Total Visit Minutes 23 Number of SERVER ENGINEER Visits 1 Physical Therapy Visit Comments Patient Comments agreeable to do PT, mother present for caregiver training . M4 PT-IP Mobility and Gait Start: 09/22/21 11:53 Freq: NEEDED Status: Active Protocol: Document 09/23/21 09:13 KS (Rec: 09/23/21 11:32 KS [id number]) PT-Bed Mobility Assessment Rolling Type of Rolling Log Rolling Level of Assist Contact Guard Assistance Supine to Sit Supine to Sit Minimal Assistance Sit to Supine Sit to Supine Minimal Assistance Scooting Scooting to Edge of Bed Contact Guard Assistance PT-Transfer Assessment Sit to and From Stand Sit to and from Stand Contact Guard Assistance,1 Person Assistance,Use of Upper Extremities Equipment Transfer Assistive Device Gait Belt,Front Wheeled Walker Orthotic/Prosthetic Devices or Brace: No Transfers Transfer Destination Bed,Chair Transfer Technique Pt ambulated w/ FWW Transfer Ability Level of Assist Contact Guard Assistance, Minimal Assistance Comments Mobility Comments Pt in bed upon arrival w/ mother in room. Pt still in pain but reports feeling better this AM and wants to return home. CGA for bed mobility and sit<>stand w/ FWW . Demonstrated gait belt application and FWW guarding/ assist for pt sit<>Stand. Pt CGA for sit<>Stand w/ FWW. She then ambulated ~40 ft in room w/ FWW CGA. Pt ambulated slowly w/ decreased stride and foot clearance however gait did improve somewhat w/ distance. Pt performed sit<> sup w/ Min A for LE assistance , and then again sup<>sit CGA and transferred to chair w/ FWW SBA. Pt and her mother feel safe to return home. Gait Assessment Gait Gait Assistance Required: Contact Guard Assist,1 Person Assist Distance (Feet) 40 Able to Maintain Weight Bearing Status Yes During Gait Assistive Devices Assistive Device Gait Belt,Front Wheeled Walker Orthotic/Prosthetic Devices or Brace: No Gait Deviations General Gait Pattern Antalgic,Decreased Stride Length,Decreased Feet Clearance,Flexed Trunk Factors Limiting Gait Function Factors Limiting Gait Function Decreased Activity Tolerance, Decreased Strength,Limited Range of Motion,Pain,Poor Balance Comments Gait Comments Please refer to mobility section for details. Stair Climbing Assessment Comments Stair Climbing Comments No stairs at home. PT-Balance Assessment Sitting Balance and Reactions Static Sitting Balance Ability Good Dynamic Sitting Balance Ability Good Standing Balance and Reactions Static Standing Balance Ability Good Dynamic Standing Balance Ability Good Device Used FWW M5 PT-IP Objective Assessments Start: 09/22/21 11:53 Freq: NEEDED Status: Active Protocol: Document 09/22/21 09:15 AB (Rec: 09/22/21 12:24 AB [id number]) Orientation Orientation/Cognition Level of Alertness Alert Orientation Name Safety Awareness Decreased Safety Awareness Memory Description No Deficits Noted Gross Range of Motion Lower Extremity ROM Assessment Within Functional Limits Strength Lower Extremity Strength Assessment Left Impaired Hip 3+/5 Knee 3+/5 Sensation Assessment Sensation Gross Sensation WNL Muscle Tone Muscle Tone WNL Yes M6 PT-IP Treatment Start: 09/22/21 11:53 Freq: NEEDED Status: Active Protocol: Document 09/23/21 09:13 KS (Rec: 09/23/21 11:32 KS [id number]) Physical Therapy Treatment Education Education Provided Precautions,Weight Bearing Status,Post-Op Packet,Safety Other Treatments Other Treatment Performed Completed caregiver training, discussed OPPT. M7 PT-IP Assessment and Plan Start: 09/22/21 11:53 Freq: NEEDED Status: Active Protocol: Document 09/23/21 09:13 KS (Rec: 09/23/21 11:32 KS [id number]) PT Summary Assessment and Plan Potential Rehabilitation Potential Good Summary Impairments Pain,ROM,Strength,Balance, Coordination,Sensation,Tone, Cognition,Bed Mobility, Transfers,Gait,Activity Tolerance Progress Towards Goals Slow Progress due to Pain,Slow Progress due to Activity Tolerance Assessment Summary Pt CGA for most mobility today aside from needing Min A for LE assistance into bed when sit<>sup. Good recall of precautions. Pts mother was able to provide assist as needed. Pt ambulated ~40 ft w/ FWW and was limited primarily by pain. She feels safe to return home and would benefit from OPPT when appropriate for spinal mobility and core stability. Goals Bed Mobility Goal Standby Assistance Transfer Goal Standby Assistance,Front Wheeled Walker Gait Goal Standby Assistance,Front Wheel Walker Gait Distance 150 Days to Meet Goals 10 Frequency of Treatment Frequency Of Treatment Twice a Day Treatment Plan Physical Therapy Treatment Plan Bed Mobility Training,Transfer Training,Gait Training, Therapeutic Exercise,Balance Retraining,Post Op Education, Discharge Planning,Hot or Cold Pack,Neuromuscular Re-ed, Coordination Retraining,Manual Therapy Precautions Lumbar Precautions Log Roll,No Twisting,Limit Bending,Lifting Restriction of 10 lbs,Gait Belt above Incisional Area Recommendations To Nursing Amount of Assist Needed 1 Person Assist Discharge Recommendations PT Discharge Recommendations Home with 24/ Assist Available Transportation Needs at Discharge Private Vehicle
--- NOTE | 2021-09-23 10:39 | OT.IP.TRT ---
Current Diagnoses Acute posthemorrhagic anemia (09/22/21) Hypotension, unspecified (09/22/21) Spondylolisthesis, lumbar region (09/22/21) Spinal stenosis, lumbar region with neurogenic claudication (09/22/21) Arthrodesis status (09/22/21) Surgery Performed Operation Date: 09/21/21 07:45 Actual Procedures p L4-5, L5-S1 TLIF w. posterior instrumentation, L2-S1 PSF w. instrumentation - Hussain Millard MD Occupational Therapy Treatment Note M2 OT-IP Current Condition Start: 09/22/21 11:39 Freq: Status: Active Protocol: Document 09/22/21 11:05 [facility] (Rec: 09/22/21 11:59 [facility] [id number]) Occupational Therapy Current Condition Current Condition Evaluation Date 09/22/21 Treatment Diagnosis S/P L4-5, L5-S1 TLIF with posterior inst. L2-S1 PSF with inst. Diagnosis Onset Date 09/21/21 Post Operative Precautions Lumbar Precautions Log Roll,No Twisting,Limit Bending,Lifting Restriction of 10 lbs,Gait Belt above Incisional Area M3 OT- IP Subjective and Pain Start: 09/22/21 11:39 Freq: Status: Active Protocol: Document 09/23/21 09:43 [facility] (Rec: 09/23/21 10:57 [facility] [id number]) OT- Subjective Occupational Therapy Visit Type Type Treatment Note Visit Start Time 09:43 Visit Stop Time 10:39 Total Visit Minutes 56 Occupational Therapy Visit Comments Patient Comments Pt agreeing to shower and pt's mother present for caregiver training. Patient/Caregiver Goals To go home. OT Pain Assessment Pain When Pain Assessed During Mobility Pain Present Pain Present Pain Reported Location back Intensity 7 Scale Used Numeric (0 - 10) M4 OT- IP ADL's Start: 09/22/21 11:39 Freq: Status: Active Protocol: Document 09/23/21 09:43 [facility] (Rec: 09/23/21 10:57 [facility] [id number]) OT [id number] Comments OT Self-Feeding Comments Not at meal time. OT ADL-Grooming General Evaluation Grooming Ability Independent Areas Needing Assistance Retrieving/Set-up of Grooming Items OT ADL-Oral Care Comments Oral Care Comments Not performed. OT ADL-Dressing General Eval Lower Body Dressing Ability Moderate Assistance Comments OT Dressing Comments Pt able to use electric power machine operator to assist to help get on her underwear and pants. CGA for balance while pt able to pull up her pants on her own. Assist to get on her slip on shoes. Educated pt to always use one hand to hold onto a surface so her other hand able to assist with LB dressing needs. OT ADL-Toileting Comments OT Toileting Comments Pt just had apodaca removed. OT ADL-Bathing Bathing Type Bathing Type Shower General Evaluation Bathing Ability Moderate Assistance Areas Needing Assistance Wash/Dry Back,Wash/Dry Perineal Area,Wash/Dry Lower Extremities Devices Bathing Equipment Hand Held Shower Sprayer, Shower Chair without Arms,Grab Bars Comments OT Bathing Comments Pt will need assist from her mother at home. Pt's mother watching but did not want to participate assisting her daughter for the shower at this time. Educated to be sure to have her back dressing covered with plastic to prevent the dressing from getting wet. M5 OT- IP IADL's Start: 09/22/21 11:39 Freq: Status: Active Protocol: Document 09/22/21 11:05 [facility] (Rec: 09/22/21 11:59 [facility] [id number]) OT-Instrumental Activities of Daily Living Home Safety Awareness Awareness of Need for Assistance at Home Good Awareness Home Safety Comments Pt has a supportive mother that is available to assist that lives 50ft away. Medication Management Medication Management Comments Pt's mom to be able to assist as needed. Money Management Money Management Comments Pt's mom to be able to assist as needed. Meal Preparation Meal Preparation Comments Pt's mom to be able to assist. Lead Java J2Ee Developer Lead Java J2Ee Developer Comments Pt's mom to be able to assist. M6 OT- IP Functional Cognition Start: 09/22/21 11:39 Freq: Status: Active Protocol: Document 09/23/21 09:43 [facility] (Rec: 09/23/21 10:57 [facility] [id number]) Cognitive Factors Limiting Selfcare Function Cognitive Comments Cognitive Assessment Comments Pt able to follow her back precautions well for mobility and showering needs. M7 OT- IP Mobility and Balance Start: 09/22/21 11:39 Freq: Status: Active Protocol: Document 09/23/21 09:43 [facility] (Rec: 09/23/21 10:57 [facility] [id number]) OT-Transfer Assessment Sit to and From Stand Sit to and from Stand Contact Guard Assistance Transfers Transfer Ability Standby Assistance,Contact Guard Assistance Technique Transfer Destination Bed,Chair,Shower Stall Devices Transfer Assistive Devices Gait Belt,Front Wheeled Walker Comments Mobility Comments Pt's mom able to safely assist her to get in to the shower with FWW. BP sitting 122/62 and after shower 131/78. OT- Balance Assessment Sitting Balance and Reactions Static Sitting Balance Ability Good Dynamic Sitting Balance Ability Good Standing Balance and Reactions Static Standing Balance Ability Fair Dynamic Standing Balance Ability Fair M8 OT- IP Objective Assessments Start: 09/22/21 11:39 Freq: Status: Active Protocol: Document 09/22/21 11:05 [facility] (Rec: 09/22/21 11:59 [facility] [id number]) OT-Muscle Tone Assessment Muscle Tone WNL Yes M9 OT- IP Assessment and Plan Start: 09/22/21 11:39 Freq: Status: Active Protocol: Document 09/23/21 09:43 [facility] (Rec: 09/23/21 10:57 [facility] [id number]) OT Summary Assessment and Plan Potential Rehabilitation Potential Good Analytic Complexity at Evaluation Low Summary OT Impairments Pain,Balance,Functional Mobility,Dressing,Toileting, Bathing,Toilet Transfers, Shower Transfers,Activity Tolerance Progress Towards Goals Progressing Toward Goals Assessment Summary Pt's mother able to participate in caregiver training for showering and dressing needs and able to states good understanding and able to show good demonstration of how to assist pt for transfers and mobility with the FWW. Pt not wanting any home health services. Goals Grooming Goal Independent Dressing Goal Minimal Assistance Toileting Goal Independent Bathing Goal Minimal Assistance Toilet Transfer Goal Independent Shower Transfer Goal Standby Assistance Days to Meet Goals 1 Frequency of Treatment Frequency Of Treatment Once a Day Treatment Plan OT Treatment Plan ADL Training,Functional Mobility,Patient/Family Education,Discharge Planning Discharge Recommendations OT Discharge Recommendations Home with / Assist Available Transportation Needs at Discharge Private Vehicle
== END 2021-09-23 11:00 | disposition home or self-care (01) ==
LOC: OR 15:40 → AC 15:40
PROVIDERS: Admitting Provider Orthopaedic Surgery Orthopaedic Surgery of the Spine; PCP Physician Assistant; Referring Provider Physical Medicine & Rehabilitation; Visit Provider Orthopaedic Surgery Orthopaedic Surgery of the Spine
PROC: (CPT 22614; principal; 2021-09-21 07:45)
DX: M43.16 Spondylolisthesis, lumbar region (principal); M48.062 Spinal stenosis, lumbar region with neurogenic claudication; Z98.1 Arthrodesis status; I95.9 Hypotension, unspecified; D62 Acute posthemorrhagic anemia; I10 Essential (primary) hypertension
CPT/HCPCS: 22614; 63052; 63053; 22633; 22634; 22853 ×2; 22842; 20939; 36415; 72100; 76000; 82962; 85014; 85018; 94660; 97116; 97162; 97165; 97530; 97535; G0378; C1713; C1831; C9290; J0131; J0171; J0690; J1100; J1170; J2250; J2310; J2405; J2704; J3010

== ENCOUNTER → 2021-11-10 10:56 | Outpatient (CLI) | payer OTHER, SELFPAY ==
[2021-09-21 16:42] VITALS: BMI 32.5
[2021-11-10 11:46] LABS: COVID19 -Nasal RAPID Negative (Negative)
== END ==
PROVIDERS: PCP Physician Assistant; Referring Provider Orthopaedic Surgery Orthopaedic Surgery of the Spine; Visit Provider Orthopaedic Surgery Orthopaedic Surgery of the Spine
DX: Z20.822 Contact with and (suspected) exposure to COVID-19 (principal)
CPT/HCPCS: 87635; C9803

== ENCOUNTER 2021-11-24 09:26 | Inpatient (IN) | payer OTHER, SELFPAY ==
[2021-09-21 16:42] VITALS: BMI 32.5
[2021-11-24] VITALS (19 sets, daily range): BP systolic 88–132; BP diastolic 46–86; PULSE 74–89; RESP 8–20; TEMP 35.1–37.4; O2SAT 94–100; BMI 31.3
[2021-11-24 11:13] LABS: COVID19 -Nasal RAPID Negative (Negative)
--- NOTE | 2021-11-24 15:22 | P.HP_ITS ---
History of Present Illness History of Present Illness Date Patient Seen: 11/24/21 Time Patient Seen: 08:40 Chief complaint: POSTOP WOUND INFECTION Narrative: Pt presented to the office today w/ Dr Millard for a wound check. She originally underwent L4-5, L5-S1 TLIF w/ posterior instrumentation on 09/21/2021. She has had persistent drainage and some wound dehiscence. In office I&D was performed on 11/12/2021 and she was placed on prophylactic Keflex. She has had some yellow drainage since her 11/12 procedure, with increased pain and new-onset fever. She denies chest pain or shortness of breath. Patient History Medical History Chronic back pain Hx of sleep apnea Hypertension Migraines Surgical History H/O abdominoplasty H/O shoulder surgery H/O: hysterectomy History of back surgery History of lumbar spinal fusion (09/21/21) Hx of gastric bypass Hx of plastic surgery Family & Social History Social History: household members none Prior Living Arrangements House Safety & Behavioral: Feels Safe in Current Yes Environment Been Physically Hurt or No Threatened By a Person Tobacco & Substance use: Smoking Status Former smoker alcohol intake current alcohol intake frequency holiday/special occasion Substance Use Type does not use Meds Home Medications and Allergies Home Medications Medication Instructions Recorded Confirmed Type amitriptyline 75 mg tablet 75 mg PO BEDTIME ##0 09/21/21 11/24/21 History atorvastatin 40 mg tablet 40 mg PO DAILY 09/21/21 11/24/21 History cholecalciferol (vitamin D3) 25 25 mcg PO DAILY ##0 09/21/21 11/24/21 History mcg (1,000 unit) capsule (Vitamin D3) ferrous sulfate 325 mg (65 mg 325 mg PO DAILY 09/21/21 11/24/21 History iron) capsule,extended release gabapentin 300 mg capsule 300 mg PO DIRECTED 09/21/21 11/24/21 History lisinopril 20 mg tablet 20 mg PO DAILY 09/21/21 11/24/21 History rizatriptan 10 mg tablet 10 mg PRN PRN Pain (Scale Score 09/21/21 11/24/21 History 4-6) ropinirole 2 mg tablet 2 mg PO BEDTIME ##0 09/21/21 11/24/21 History acetaminophen 325 mg tablet 650 mg PO Q6HR PRN Pain, Mild 09/23/21 11/24/21 Rx (1-3) #360 tabs docusate sodium 100 mg capsule 100 mg PO BID PRN constipation #60 09/23/21 11/24/21 Rx caps tramadol 50 mg tablet 50 mg PO Q4H PRN Pain, Moderate 09/23/21 11/24/21 Rx (4-6) #120 tabs ascorbic acid (vitamin C) 1,000 mg 1,000 mg PO DAILY 11/09/21 11/24/21 History tablet (Vitamin C) Allergies Allergy/AdvReac Type Severity Reaction Status Date / Time Sulfa (Sulfonamide Allergy Rash Verified 09/21/21 06:47 Antibiotics) Review of Systems Review of Systems ROS: Yes All systems reviewed with the patient and are negative except as otherwise documented Integumentary/Breasts Comments: Continued pain and drainage of incision. Exam Vital Signs (past 8 hours): - 11/24/21 10:41 11/24/21 10:00 11/24/21 15:16 Temperature 97.6 F 99.3 F Pulse Rate 86 82 Respiratory Rate 20 16 Blood Pressure 120/70 119/70 Pulse Oximetry 97 98 Oxygen Delivery Method Room Air Room Air Oxygen Flow Rate 0 Oxygen Delivery Method Room Air Oxygen Flow Rate 0 Const General: cooperative, healthy appearing and comfortable Skin Other: Severe pain to palpation of her bilateral paraspinal soft tissue. There is increased induration to her paraspinal muscles. Her sutures are intact on the left w/ yellowish discharge onto the dressing. Objective Labs Labs: Laboratory Results - last 24 hr 11/24/21 11/24/21 10:10 10:57 SARS-CoV-2 (PCR) Cancelled Negative Labs done at [facility] on 11/23/2021. WBC 11.6 (up from 5), ESR 38, CRP 2.7. Assessment & Plan Assessment and plan (1) S/P lumbar fusion: Status: Acute (2) Wound infection after surgery: Status: Acute Plan: Surgical I&D of lumbar wound today w/ Dr Millard. Time Spent With Patient Critical Care time: I spent a total of [] minutes of critical care time on this patient's care today; this time is exclusive of procedural time.
[2021-11-24] MEDS: LACTATED RINGERS 1,000 ML 42 ML IV (15:25)
--- NOTE | 2021-11-24 16:05 | P.OP_ITS ---
Operative Date/Time/Diagnoses Date of procedure: 11/24/21 Time of procedure: 16:15 Pre-op diagnosis: 1. Lumbar wound infection Post-op diagnosis: same Procedure & Clinicians Procedure: 1. Lumbar wound irrigation and debridement of skin, muscle, fascia. Same procedure as scheduled: Yes Indications: Ms. Hebert is a 50 yo F who is 2 months post lumbar fusion. She developed left sided wound dehiscience at 4 week post op after her keiko came out at 2 weeks. Her wound has been draining. After seeing her in clinic at about 4 weeks post surgery, I recommended surgical I&D to faciliate wound closure and prevent infection, which was denied by her insurance. At that time her WBC was 5000 and she did not have fevers. I performed a I&D using local anesthetic and surgical prep in the clinic after the denial by her insurance 2 weeks ago. She has been doing well until 2 days ago when she started to have increased pain, fever. Her labs from 11/23 showed [place] 43744, and ESR is over 30. She has fever of 102. She has severe pain to palpation in bilateral paraspinal region near her incision. She is neuro intact. She has likely developed post op wound infection due to her dehiscience. I scheduled her today emergently for I&D and exploration of her wound. Surgeon: Hussain Millard Click Yes if Unassisted: Yes Anesthesia Type: General Operative Notes Closure Type: primary Specimen(s): other Estimated Blood Loss (mL): 5 Blood products transfused: none Procedure in detail: Patient was seen in the preoperative area. Risks and benefits of the surgery was discussed with the patient. Informed consent was obtained from the patient and placed in the chart. Surgical site was marked. Patient was taken to the operative room. General anesthesia was administered. Prophylactic antibiotic was given to the patient less than 30 min before the incision was made. Patient was placed into a prone position on the Deni table. Patient's back was then prepped and draped in the sterile fashion. Time-out was performed at this time. Patient's left-sided incision was inspected. There is a 1 in long wound on the middle aspect of the incision. There is scant yellow drainage. The wound was then extended cephalad by another 4 inches in order to expose the full extent of the involvement. The wound was inspected again. The deep fascial layer is intact with no exposed hardware. At this time using a 10 blade as well as a Christensen, unhealthy appearing tissue was excised including skin subcutaneous tissue and muscle fascia. There was approximately 10 cc of seroma in the subcutaneous layer which was aspirated. After excision all debridement was completed the wound was irrigated copiously with sterile normal saline with gentamicin. After the irrigation and debridement was completed the wound was then re-examined. Healthy-appearing tissue was visible on all surfaces of the wound. The left- sided wound was then closed with #1 Nylon in vertical mattress fashion along with keiko. I then made an incision over her right side over her previous healed scar. Due to the significant induration and severe pain on palpation I suspect there is subcutaneous fluid collection. After making skin incision and dissecting through the subcutaneous layer the there is a pocket of a proximally 50 cc of seroma on the right side in the subcutaneous layer. The fluid is straw-colored clear and non viscous. Same debridement was performed on the right side by suction and aspirated the seroma debriding the subcutaneous tissue of any unhealthy appearing tissue. The debridement was performed until healthy- appearing tissue was exposed an awl surface of the wound. The wound again was copiously irrigated with sterile normal saline with gentamicin. #1 Nylon suture was used to close the wound in vertical mattress fashion in interrupted fashion. Keiko then was placed between the nylon vertical mattress sutures. The wound was closed without any difficulty and without added stress the skin. At this time a sterile dressing was applied the patient's wound/incision. Patient was then woken up from anesthesia and transferred recovery room stable condition. There were no complications. I will plan to keep the patient admitted and receiving IV antibiotics and await culture from her wound. I will plan to discharge her on oral antibiotics once the culture results are available. Complications: none Post-operative Condition: stable Disposition: PACU Plan for aftercare: Admit to inpatient hospital
--- NOTE | 2021-11-24 16:05 | PM.PREOP ---
Pre-operative Note COVID-19 COVID-19 status: Negative Result date/Date tested (Pos, Neg/Pending): 11/23/21 Criteria for continued procedure: Expected advancement of disease process, Possibility delay results in more complex future surgery or treatment, Increased loss of function, Continuing or worsening of significant or severe pain, Deterioration of the patient's condition or overall health and Delay expected to result in less-positive ultimate med/surg outcome Interval Note History & Physical reviewed/Exam performed by Physician: Yes Changes to H&P: No
[2021-11-24] MEDS: VANCOMYCIN 1,000 MG/200 ML PIGGYBACK 200 MG IV (16:37)
[2021-11-24] MEDS: SODIUM CHLORIDE IRRIG SOLUTION 3,000 ML, GENTAMICIN 240 MG IRR (16:53)
[2021-11-24] MEDS: HYDROMORPHONE 2 MG INJ IV ×4 (17:30→17:45)
[2021-11-24] MEDS: DEXAMETHASONE 10 MG/ML VIAL 8 MG IV (17:50)
[2021-11-24] MEDS: OXYCODONE IR 5 MG TABLET PO ×2 (17:56→18:47)
[2021-11-24] MEDS: hydrOXYzine pamoate 25 MG CAPSULE PO (18:47)
[2021-11-24] MEDS: ACETAMINOPHEN 325 MG TABLET 650 MG PO (18:47)
[2021-11-24] MEDS: SODIUM CHLORIDE 0.9% 1,000 ML 100 ML IV (18:48)
[2021-11-24] MEDS: SENNOSIDES 8.6 MG TABLET 17.2 MG PO (20:16)
[2021-11-24] MEDS: AMITRIPTYLINE 75 MG TABLET PO (20:16)
[2021-11-24] MEDS: ROPINIROLE 1 MG TABLET 2 MG PO (20:17)
[2021-11-24] MEDS: DOCUSATE 100 MG CAPSULE PO (20:17)
[2021-11-24] MEDS: HYDROMORPHONE 0.5 MG INJ IV (20:17)
[2021-11-24] MEDS: GABAPENTIN 600 MG TABLET PO (20:18)
[2021-11-25] MEDS: OXYCODONE IR 5 MG TABLET PO ×2 (02:55→07:53)
[2021-11-25 03:00] VITALS: BP 113/55; PULSE 86; RESP 18; TEMP 35.6; O2SAT 100
--- NOTE | 2021-11-25 03:16 | PC.NURSE ---
Pt is AxOx4, needs 1 person assistance to the bedside commode. VSS, pt c/o pain on her back and recieved PRN ID Dilaudid 0.5mg and PO 5mg Oxy x1 with good effect. Pt was put on 2L O2 due to desats to 87-85% in the evening. Dressing on back C/D/I. Pt is voiding well. No other changes. Continue monitor.
[2021-11-25] MEDS: VANCOMYCIN 1,000 MG/200 ML PIGGYBACK 200 MG IV (04:07)
[2021-11-25] MEDS: SODIUM CHLORIDE 0.9% 1,000 ML 100 ML IV (04:09)
[2021-11-25 05:03] LABS: Add Manual Diff / Slide Review NO; Basophils Absolute Auto 0 /uL (0-100); Basophils Percent Auto 0.1 % (0-2); Eosinophils Absolute Auto 0 /uL (0-450); Hematocrit 31.2 % (36-46); Hemoglobin 10.6 g/dL (12.0-16.0); Lymphocytes Absolute Auto 700 /uL (1100-4500); Lymphocytes Percent Auto 9.2 % (25-40); Mean Corpuscular HGB Conc 33.9 % (30-36); Mean Corpuscular Hemoglobin 31.1 PG (26-34); Mean Corpuscular Volume 91.7 fL (80-100); Monocytes Absolute Auto 300 /uL (0-900); Monocytes Percent Auto 3.6 % (3-14); Neutrophils Absolute Auto 7100 /uL (1500-7000); Neutrophils Percent Auto 87.1 % (50-75); Platelet Count 295 X10^3/uL (150-400); Red Cell Distribution Width 12.8 % (11.6-14.8); White Blood Cell Count 8.1 X10^3/uL (4.5-11.0)
[2021-11-25 08:11] VITALS: BP 90/58; PULSE 62; RESP 18; TEMP 35.9; O2SAT 93
--- NOTE | 2021-11-25 08:18 | P.PN_ITS ---
Subjective Subjective Date Patient Seen: 11/25/21 Time Patient Seen: 08:18 Interval history: Patient is complaining of moderate to severe low back pain this morning. She is denying any current fevers, chills, night sweats. No new numbness or tingling down her legs. She is getting IV vancomycin. Exam Vital Signs (past 8 hours): - 11/25/21 03:00 11/25/21 08:11 Temperature 96.1 F L 96.6 F L Pulse Rate 86 62 Respiratory Rate 18 18 Blood Pressure 113/55 L 90/58 L Pulse Oximetry 100 93 Oxygen Flow Rate 2 0 Oxygen Delivery Method Nasal Cannula Oxygen Flow Rate 0 Narrative Exam Narrative: Pleasant 50-year-old female, resting comfortably in bed, no acute distress. Her mother is at bedside. Dressing is clean, dry, intact with no surrounding erythema or induration. Bilateral lower extremity: Motor functions are grossly intact, sensation is grossly intact to light touch, calves are soft and nontender to palpation. Objective Labs Result Diagrams: 11/25/21 04:51 Labs: Laboratory Results - last 24 hr 11/24/21 11/24/21 11/25/21 10:10 10:57 04:51 WBC 8.1 RBC 3.40 L Hgb 10.6 L Hct 31.2 L MCV 91.7 MCH 31.1 MCHC 33.9 RDW 12.8 Plt Count 295 Neut % (Auto) 87.1 H Lymph % (Auto) 9.2 L [place] % (Auto) 3.6 Eos % (Auto) 0.0 L Baso % (Auto) 0.1 Neut # (Auto) 7100 H Lymph # (Auto) 700 L [place] # (Auto) 300 Eos # (Auto) 0 Baso # (Auto) 0 SARS-CoV-2 (PCR) Cancelled Negative PFSH Medical History Chronic back pain Hx of sleep apnea Hypertension Migraines Surgical History H/O abdominoplasty H/O shoulder surgery H/O: hysterectomy History of back surgery History of lumbar spinal fusion (09/21/21) Hx of gastric bypass Hx of plastic surgery Social History household members: none Smoking Status: Former smoker alcohol intake: current Assessment & Plan Post-op Postoperative Procedures: Procedures Operation Date: 11/24/21 16:00 Actual Procedure Side Surgeon p I&D lumbar wound & closure Hussain Millard MD Postoperative day: 1 Postoperative status narrative: Stable status post bilateral lumbar wound I&Ds; pending cultures -hypotension, asymptomatic currently Postoperative plan narrative: -WBC is 8.1 today, down from 11.0 on 11/23. She is currently afebrile -Cultures have shown scant Gram-positive cocci growth, no finalized aerobic or anaerobic cultures yet. Continue IV vanco -hold lisinopril until BP is greater than 120/80 -continue with multimodal pain management: Oxycodone 5-10 mg every 3-4 hours. Tramadol 50 mg for breakthrough pain. Discontinue Dilaudid. -disposition likely to days, depending on final culture results. Once we receive final culture results, we will change to appropriate p.o. antibiotics
[2021-11-25] MEDS: ASCORBIC ACID 500 MG TABLET 1000 MG PO (08:23)
[2021-11-25] MEDS: CHOLECALCIFEROL (VITAMIN D3) 1,000 UNIT TABLET 1000 UNIT PO (08:24)
[2021-11-25] MEDS: FERROUS SULFATE 325 MG TABLET PO (08:24)
[2021-11-25] MEDS: DOCUSATE 100 MG CAPSULE PO ×2 (08:24→20:56)
[2021-11-25] MEDS: ATORVASTATIN 20 MG TABLET 40 MG PO (08:24)
[2021-11-25] MEDS: GABAPENTIN 600 MG TABLET PO ×2 (08:56→20:56)
--- NOTE | 2021-11-25 09:10 | CM.DANOTE ---
Pt is 50 year old female admitted for post op infection and subsequent I&D of TLIF site. Pt has [employer]. Pt lives alone on same property as her parents. Pt receives some help from mother but is mostly independent. Plan: Plan is pending culture sensitivities to determine abx plan. Pt has previous experience administering home IV ABX. SARAH Del Rio Discharge Planning/Care Management CM Discharge Assessment Start: 11/25/21 09:01 Freq: Status: Active Protocol: Document 11/25/21 09:01 (Rec: 11/25/21 09:09 [id number]) Discharge Planning Assessment Assigned Dietetic Intern SARAH Del Rio DPOA/Assigned Designee Name no DPOA. Emergency Contact: MotherMarcelle Contact Information Advance Directives? No Advance Directives on File No History Provided By Patient,Medical Record Has Patient been admitted in last 30 Yes days? Prior Living Arrangements House Comment Pt lives in a small home on mother's property. Home is 20 feet from mother's house. 0STE house. Stairs to kitchen. Household Members none Type of transporation used prior to Drives own vehicle admit Willing to Return to Facility? No Independent with ADL's Yes: Pt uses FWW and/or Cane at baseline. Is patient alert and oriented? Yes Comment pt generally eats with parents at their home. Pt independent with all ADLs. Caregiver for Another No DME Already Rented / Owned FWW / Walker,Cane Comment TBD. Possible IVABX Home Infusion - pending cultures. Comment Patient's mother will be assisting her, lives near by. Discharge Plan Home Transportation Arrangement Family Referrals Initiated None needed Additional Comment Will see how patient does with P.T. Whiteboard Updated in Patient Room with Yes name and ext. # of Dietetic Intern Review Status In Process Please Provide Date Initial DC 02/25/21 Assessment Was Performed Next Review Type Continued Stay Review
--- NOTE | 2021-11-25 10:39 | PT.IIE ---
Current Diagnoses Infection following a procedure, other surgical site, initial encounter (11/24/21) Arthrodesis status (11/24/21) Surgery Performed Operation Date: 11/24/21 16:00 Actual Procedures p I&D lumbar wound & closure - Hussain Millard MD Surgical History (Last Reviewed 11/25/21 @ 08:19 by Pam Vasquez PA-C) H/O abdominoplasty H/O shoulder surgery H/O: hysterectomy History of back surgery History of lumbar spinal fusion (09/21/21) Hx of gastric bypass Hx of plastic surgery Medical History (Last Reviewed 11/25/21 @ 08:19 by Pam Vasquez PA-C) Chronic back pain Hx of sleep apnea Hypertension Migraines Physical Therapy Inpatient Evaluation/Re-Eval M1 PT/OT-IP Prior Functional Status Start: 11/25/21 12:25 Freq: NEEDED Status: Active Protocol: Document 11/25/21 10:39 AB (Rec: 11/25/21 12:38 AB [email or web address]) Medical Review Prior Functional Status Medical History Reviewed Yes Communication able to make needs known Mobility and Gait pt stated that she is modified independent with all mobilties and ambulation without AD indoors but occasionally uses her SPC ; uses SPC for outdoor mobility Social History Household Members none Living Arrangements House Number of Stairs To Enter/Railing? pt lives in a [id number] type house and her mom lives next door no steps to enter the house Home Environment High Toilet,Walk in Shower Home Equipment Front Wheel Walker,Straight Cane,Shower Seat with Backrest ,Hand Held Shower,Grab Bars In Shower Additional Social History Comment has an adjustable bed M2 PT-IP Current Condition Start: 11/25/21 12:25 Freq: NEEDED Status: Active Protocol: Document 11/25/21 10:39 AB (Rec: 11/25/21 12:38 AB [email or web address]) Physical Therapy Current Condition Current Condition Evaluation Date 11/25/21 Treatment Diagnosis s/p I&D lumbar wound; difficulty in walking Onset Date 11/24/21 M3 PT-IP Subjective Start: 11/25/21 12:25 Freq: NEEDED Status: Active Protocol: Document 11/25/21 10:39 AB (Rec: 11/25/21 12:38 AB [email or web address]) Subjective Physical Therapy Visit Type Type Initial Evaluation Visit Start Time 10:39 Visit Stop Time 11:01 Total Visit Minutes 22 Number of PARKING LINE PAINTER Visits 0 Physical Therapy Visit Comments Patient Comments agreeable to do PT; requesting to use the toilet Therapy Pain Assessment Pain When Pain Assessed At Rest Pain Present Pain Present Pain Reported Location back Intensity 7 Scale Used Numeric (0 - 10) Pain Management Techniques Distraction,Modification of Treatment,Re-positioning, Timing of Activity with Medications M4 PT-IP Mobility and Gait Start: 11/25/21 12:25 Freq: NEEDED Status: Active Protocol: Document 11/25/21 10:39 AB (Rec: 11/25/21 12:38 AB [email or web address]) PT-Bed Mobility Assessment Rolling Type of Rolling Log Rolling Level of Assist Standby Assistance Supine to Sit Supine to Sit Standby Assistance Sit to Supine Sit to Supine Standby Assistance PT-Transfer Assessment Sit to and From Stand Sit to and from Stand Standby Assistance Equipment Transfer Assistive Device Gait Belt,Front Wheeled Walker Orthotic/Prosthetic Devices or Brace: No Transfers Transfer Destination Toilet Transfer Technique ambulated Transfer Ability Level of Assist Standby Assistance Comments Mobility Comments pt able to recall her back precautions. BP in supine: 87/ 48. pt requesting to use the toilet. completed log roll supine to sit SBA. no c/o dizziness/lightheadedness. BP in sittin/58. pt completed sit to stand SBA and ambulated to the toilet using FWW SBA ~ 10 ft. ambulated out of the toilet towards the sink using FWW SBA. able to complete handwashing using FWW for support SBA. pt requested to go back to bed. BP sitting on EOB: 107/67. completed sit to supine SBA. positioned pt in bed. call light and table placed within reach. Gait Assessment Gait Gait Assistance Required: Standby Assistance Distance (Feet) 10 Able to Maintain Weight Bearing Status Yes During Gait Assistive Devices Assistive Device Gait Belt,Front Wheeled Walker Orthotic/Prosthetic Devices or Brace: No Gait Deviations General Gait Pattern Decreased Stride Length, Decreased Feet Clearance,Step- to Gait Factors Limiting Gait Function Factors Limiting Gait Function Decreased Activity Tolerance, Decreased Strength,Limited Range of Motion,Pain,Poor Balance PT-Balance Assessment Sitting Balance and Reactions Static Sitting Balance Ability Normal Dynamic Sitting Balance Ability Normal Standing Balance and Reactions Static Standing Balance Ability Good Dynamic Standing Balance Ability Fair Device Used FWW M5 PT-IP Objective Assessments Start: 11/25/21 12:25 Freq: NEEDED Status: Active Protocol: Document 11/25/21 10:39 AB (Rec: 11/25/21 12:38 AB [email or web address]) Orientation Orientation/Cognition Level of Alertness Alert Orientation Name,Place,Situation Language Function Ability No Deficits Noted Safety Awareness Understands Safety Issues Memory Description No Deficits Noted Gross Range of Motion Lower Extremity ROM Assessment Within Functional Limits Strength Lower Extremity Strength Hip 4-/5 Knee 4-/5 Coordination Assessment Gross Coordination Gross Coordination WNL Sensation Assessment Sensation Gross Sensation WNL Muscle Tone Muscle Tone WNL Yes M6 PT-IP Treatment Start: 11/25/21 12:25 Freq: NEEDED Status: Active Protocol: Document 11/25/21 10:39 AB (Rec: 11/25/21 12:38 AB [email or web address]) Physical Therapy Treatment Education Education Provided Precautions,Weight Bearing Status,Safety M7 PT-IP Assessment and Plan Start: 11/25/21 12:25 Freq: NEEDED Status: Active Protocol: Document 11/25/21 10:39 AB (Rec: 11/25/21 12:38 AB [email or web address]) PT Summary Assessment and Plan Potential Rehabilitation Potential Good Status of Condition at Evaluation Evolving Summary Impairments Pain,ROM,Strength,Balance, Coordination,Sensation,Tone, Cognition,Bed Mobility, Transfers,Gait,Activity Tolerance Assessment Summary pt s/p back surgery last september and admitted after lumbar wound I&D. pt requiring SBA with mobility using FWW and unable to tolerate much activity due to c/o back pain. will continue to assess progress. pt plans to go home and her mother can assist her as needed. Goals Bed Mobility Goal Independent Transfer Goal Independent,Front Wheeled Walker Gait Goal Independent,Front Wheel Walker Gait Distance 200 Other Goals improve ambulation using SPC 200 ft mod I Days to Meet Goals 10 Frequency of Treatment Frequency Of Treatment Once a Day Treatment Plan Physical Therapy Treatment Plan Bed Mobility Training,Transfer Training,Gait Training, Therapeutic Exercise,Balance Retraining,Post Op Education, Discharge Planning,Hot or Cold Pack,Neuromuscular Re-ed, Coordination Retraining,Manual Therapy Precautions Lumbar Precautions Log Roll,No Twisting,Limit Bending,Lifting Restriction of 10 lbs,Gait Belt above Incisional Area Recommendations To Nursing Amount of Assist Needed 1 Person Assist Discharge Recommendations PT Discharge Recommendations Home with Assistance Transportation Needs at Discharge Private Vehicle
[2021-11-25] MEDS: OXYCODONE IR 10 MG TABLET PO ×3 (11:05→21:10)
[2021-11-25] MEDS: GABAPENTIN 300 MG CAPSULE PO ×2 (11:06→16:57)
--- NOTE | 2021-11-25 13:49 | OT.IPNOTE ---
Went to see pt for OT eval as pt here due to I and D back wound. Pt was here prior due to back sx on 09/21/21. Pt states has no OT needs or issues and that her mother will be there to assist her at home for all her needs. Therefore discharge pt from OT eval , nursing and case management aware as pt has no OT need at this time.
[2021-11-25 14:39] LABS: Estimated Glomerular Filt Rate > 60 mL/min (>60)
[2021-11-25] MEDS: cefTRIAXone 2,000 MG in SODIUM CHLORIDE 0.9% 100 ML 200 MG IV (15:23)
[2021-11-25 20:00] VITALS: BP 105/72; PULSE 73; RESP 17; TEMP 36.4; O2SAT 100
[2021-11-25] MEDS: ROPINIROLE 1 MG TABLET 2 MG PO (20:56)
[2021-11-25] MEDS: SENNOSIDES 8.6 MG TABLET 17.2 MG PO (20:56)
[2021-11-25] MEDS: AMITRIPTYLINE 75 MG TABLET PO (20:56)
[2021-11-26] VITALS: BP 96/53; PULSE 86; RESP 16; TEMP 36.1; O2SAT 96
[2021-11-26 04:00] VITALS: BP 91/55; PULSE 75; RESP 15; TEMP 36.4; O2SAT 99
[2021-11-26 05:23] VITALS: BP 98/55; BP 98/62
[2021-11-26] MEDS: ACETAMINOPHEN 325 MG TABLET 650 MG PO (05:33)
[2021-11-26] MEDS: OXYCODONE IR 10 MG TABLET PO ×3 (05:33→11:54)
--- NOTE | 2021-11-26 05:42 | PC.NURSE ---
End of shift note. Patient AAOX4, slept well during the night, good pain control with oxycodone 10mg X2 and tylenol. Up to BR with FWW and SBA, denies numbness, tingling, or dizziness. Lower back dressing CDI. Plan is to discharge home today with oral antibiotics.
[2021-11-26 08:26] LABS: Add Manual Diff / Slide Review NO; Basophils Absolute Auto 0 /uL (0-100); Basophils Percent Auto 0.3 % (0-2); Eosinophils Absolute Auto 100 /uL (0-450); Eosinophils Percent Auto 1.9 % (2-4); Hematocrit 29.7 % (36-46); Hemoglobin 9.9 g/dL (12.0-16.0); Lymphocytes Absolute Auto 2200 /uL (1100-4500); Lymphocytes Percent Auto 36.4 % (25-40); Mean Corpuscular HGB Conc 33.4 % (30-36); Mean Corpuscular Hemoglobin 30.7 PG (26-34); Monocytes Absolute Auto 400 /uL (0-900); Monocytes Percent Auto 6.1 % (3-14); Neutrophils Absolute Auto 3400 /uL (1500-7000); Neutrophils Percent Auto 55.3 % (50-75); Platelet Count 285 X10^3/uL (150-400); Red Blood Cell Count 3.22 X10^6/uL (4.0-5.2); Red Cell Distribution Width 12.8 % (11.6-14.8); White Blood Cell Count 6.1 X10^3/uL (4.5-11.0)
[2021-11-26] MEDS: FERROUS SULFATE 325 MG TABLET PO (08:26)
[2021-11-26] MEDS: DOCUSATE 100 MG CAPSULE PO (08:27)
[2021-11-26] MEDS: CHOLECALCIFEROL (VITAMIN D3) 1,000 UNIT TABLET 1000 UNIT PO (08:28)
[2021-11-26] MEDS: ASCORBIC ACID 500 MG TABLET 1000 MG PO (08:29)
[2021-11-26] MEDS: ATORVASTATIN 20 MG TABLET 40 MG PO (08:29)
[2021-11-26 08:34] VITALS: BP 99/61; PULSE 64; RESP 18; TEMP 36.2; O2SAT 99
[2021-11-26] MEDS: GABAPENTIN 600 MG TABLET PO (08:34)
--- NOTE | 2021-11-26 11:07 | PT.IPTN ---
Current Diagnoses Infection following a procedure, other surgical site, initial encounter (11/24/21) Arthrodesis status (11/24/21) Surgery Performed Operation Date: 11/24/21 16:00 Actual Procedures p I&D lumbar wound & closure - Hussain Millard MD Physical Therapy Treatment Note M2 PT-IP Current Condition Start: 11/25/21 12:25 Freq: NEEDED Status: Active Protocol: Document 11/25/21 10:39 AB (Rec: 11/25/21 12:38 AB [email or web address]) Physical Therapy Current Condition Current Condition Evaluation Date 11/25/21 Treatment Diagnosis s/p I&D lumbar wound; difficulty in walking Onset Date 11/24/21 M3 PT-IP Subjective Start: 11/25/21 12:25 Freq: NEEDED Status: Active Protocol: Document 11/26/21 10:55 KS (Rec: 11/26/21 12:28 KS [id number]) Subjective Physical Therapy Visit Type Type Treatment Note Visit Start Time 10:55 Visit Stop Time 11:07 Total Visit Minutes 12 Number of MANAGER ETHICS Visits 1 Physical Therapy Visit Comments Patient Comments agreeable to do PT, mother present Therapy Pain Assessment Pain When Pain Assessed At Rest Pain Present Pain Present Pain Reported Location back Scale Used not quantified M4 PT-IP Mobility and Gait Start: 11/25/21 12:25 Freq: NEEDED Status: Active Protocol: Document 11/26/21 10:55 KS (Rec: 11/26/21 12:28 KS [id number]) PT-Bed Mobility Assessment Rolling Type of Rolling Log Rolling Level of Assist Standby Assistance Supine to Sit Supine to Sit Standby Assistance Sit to Supine Sit to Supine Standby Assistance Scooting Scooting to Edge of Bed Independent PT-Transfer Assessment Sit to and From Stand Sit to and from Stand Standby Assistance Equipment Transfer Assistive Device Gait Belt,Straight Cane Orthotic/Prosthetic Devices or Brace: No Transfers Transfer Destination Bed Transfer Technique ambulated Transfer Ability Level of Assist Standby Assistance Comments Mobility Comments Pt in bed upon arrival and agreeable to ambulate. SBA for logroll, sup<>sit, and sit<> stand w/ SPC. Pt then ambulated ~150 ft w/ SPC SBA w /o LOB. C/o slight increase in pain with ambulation, but able to tolerate. Pt returned to bed SBA and left in bed w/ all needs in reach. Feels eager to return home. Gait Assessment Gait Gait Assistance Required: Standby Assistance Distance (Feet) 150 Able to Maintain Weight Bearing Status Yes During Gait Assistive Devices Assistive Device Gait Belt,Straight Cane Orthotic/Prosthetic Devices or Brace: No Gait Deviations General Gait Pattern Decreased Stride Length, Decreased Feet Clearance Factors Limiting Gait Function Factors Limiting Gait Function Decreased Activity Tolerance, Decreased Strength,Limited Range of Motion,Pain Comments Gait Comments Ambulated 150 ft w/ SPC SBA no LOB. Stair Climbing Assessment Comments Stair Climbing Comments Not assessed, no stairs at home. PT-Balance Assessment Sitting Balance and Reactions Static Sitting Balance Ability Normal Dynamic Sitting Balance Ability Normal Standing Balance and Reactions Static Standing Balance Ability Good Dynamic Standing Balance Ability Good Device Used SPC M5 PT-IP Objective Assessments Start: 11/25/21 12:25 Freq: NEEDED Status: Active Protocol: Document 11/25/21 10:39 AB (Rec: 11/25/21 12:38 AB [email or web address]) Orientation Orientation/Cognition Level of Alertness Alert Orientation Name,Place,Situation Language Function Ability No Deficits Noted Safety Awareness Understands Safety Issues Memory Description No Deficits Noted Gross Range of Motion Lower Extremity ROM Assessment Within Functional Limits Strength Lower Extremity Strength Hip 4-/5 Knee 4-/5 Coordination Assessment Gross Coordination Gross Coordination WNL Sensation Assessment Sensation Gross Sensation WNL Muscle Tone Muscle Tone WNL Yes M6 PT-IP Treatment Start: 11/25/21 12:25 Freq: NEEDED Status: Active Protocol: Document 11/26/21 10:55 KS (Rec: 11/26/21 12:28 KS [id number]) Physical Therapy Treatment Education Education Provided Precautions,Weight Bearing Status,Safety Other Treatments Other Treatment Performed Discussed at home safety M7 PT-IP Assessment and Plan Start: 11/25/21 12:25 Freq: NEEDED Status: Active Protocol: Document 11/26/21 10:55 KS (Rec: 11/26/21 12:28 KS [id number]) PT Summary Assessment and Plan Potential Rehabilitation Potential Good Summary Impairments Pain,ROM,Strength,Balance, Coordination,Sensation,Tone, Cognition,Bed Mobility, Transfers,Gait,Activity Tolerance Progress Towards Goals Progressing Toward Goals Assessment Summary Pt requiring only SBA for mobility and is eager to return home. Trialed ambulation w/ SPC and pt ambulated ~150 ft SBA. Confirms her mother is at home to assist if needed, although she feels physically capable on her own. She will benefit from OPPT when appropriate to improve strength and stability . Goals Bed Mobility Goal Independent Transfer Goal Independent,Front Wheeled Walker Gait Goal Independent,Front Wheel Walker Gait Distance 200 Other Goals improve ambulation using SPC 200 ft mod I Days to Meet Goals 10 Frequency of Treatment Frequency Of Treatment Once a Day Treatment Plan Physical Therapy Treatment Plan Bed Mobility Training,Transfer Training,Gait Training, Therapeutic Exercise,Balance Retraining,Post Op Education, Discharge Planning,Hot or Cold Pack,Neuromuscular Re-ed, Coordination Retraining,Manual Therapy Precautions Lumbar Precautions Log Roll,No Twisting,Limit Bending,Lifting Restriction of 10 lbs,Gait Belt above Incisional Area Recommendations To Nursing Amount of Assist Needed Independent,Standby Assistance Discharge Recommendations PT Discharge Recommendations Home with Assistance Transportation Needs at Discharge Private Vehicle
--- NOTE | 2021-11-26 11:35 | P.DS_ITS ---
History of Present Illness History of Present Illness Date Patient Seen: 11/26/21 Time Patient Seen: 11:35 Chief complaint: POSTOP WOUND INFECTION Narrative: Patient is complaining of mild low back pain this morning. She denies any fevers, chills, night sweats. No lightheadedness or dizziness with sitting or standing. Her mother and friend are at bedside. Overall she is feeling very well like to be discharged home today. Patient is also complaining of a re current fever blister on her lip and is requesting valacyclovir as this has worked well in the past for her. Discharge Providers Provider Date of admission: 11/24/21 09:26 Discharge Date: 11/26/21 Primary care physician: Haydee Lancaster PA-C Consults: 11/24/21 18:21 Consult to Occupational Therapy Evaluate & Treat Comment: Physician Instructions: Evaluate and treat Consult to Physical Therapy Evaluate & Treat Comment: Physician Instructions: Evaluate and Treat Discharge provider: Pam Vasquez PA-C Summary Hospital Course Discharge Diagnosis: 1. Lumbar wound infection Hospital Course: Operative Date/Time/Diagnoses Date of procedure: 11/24/21 Time of procedure: 16:15 Procedure & Clinicians Procedure: 1. Lumbar wound irrigation and debridement of skin, muscle, fascia. Same procedure as scheduled: Yes Indications: Ms. Hebret is a 50 yo F who is 2 months post lumbar fusion. She developed left sided wound dehiscience at 4 week post op after her keiko came out at 2 weeks. Her wound has been draining. After seeing her in clinic at about 4 weeks post surgery, I recommended surgical I&D to faciliate wound closure and prevent infection, which was denied by her insurance. At that time her WBC was 5000 and she did not have fevers. I performed a I&D using local anesthetic and surgical prep in the clinic after the denial by her insurance 2 weeks ago. She has been doing well until 2 days ago when she started to have increased pain, fever. Her labs from 11/23 showed her WBC is now 74819, and ESR is over 30. She has fever of 102. She has severe pain to palpation in bilateral paraspinal region near her incision. She is neuro intact. She has likely developed post op wound infection due to her dehiscience. I scheduled her today emergently for I&D and exploration of her wound. Surgeon: Hussain Millard Click Yes if Unassisted: Yes Anesthesia Type: General Operative Notes Closure Type: primary Specimen(s): other Estimated Blood Loss (mL): 5 Blood products transfused: none Status at Discharge Cognitive/behavioral status at discharge: at baseline, oriented Functional status at discharge: independent ambulation Overall status at discharge: patient is progressing back to baseline Exam Vital Signs (past 8 hours): - 11/26/21 04:00 11/26/21 05:23 11/26/21 05:23 Temperature 97.6 F Pulse Rate 75 Respiratory Rate 15 Blood Pressure 91/55 L 98/62 98/55 L Pulse Oximetry 99 Oxygen Flow Rate 11/26/21 08:34 Temperature 97.2 F L Pulse Rate 64 Respiratory Rate 18 Blood Pressure 99/61 Pulse Oximetry 99 Oxygen Flow Rate 0 Oxygen Delivery Method Room Air Oxygen Flow Rate 0 Narrative Exam Narrative: Pleasant 50-year-old female, resting comfortably in bed, no acute distress. Her mother and friend are at bedside. Dressing is clean, dry, intact, no surrounding erythema, induration or merna pus. Bilateral lower extremity: Motor functions are grossly intact, sensation is grossly intact to light touch, calves are soft and nontender to palpation. Objective Labs Result Diagrams: 11/26/21 08:10 11/25/21 14:09 Labs: Laboratory Results - last 24 hr 11/25/21 11/26/21 14:09 08:10 WBC 6.1 RBC 3.22 L Hgb 9.9 L Hct 29.7 L MCV 92.0 MCH 30.7 MCHC 33.4 RDW 12.8 Plt Count 285 Neut % (Auto) 55.3 D Lymph % (Auto) 36.4 D [place] % (Auto) 6.1 Eos % (Auto) 1.9 L Baso % (Auto) 0.3 Neut # (Auto) 3400 Lymph # (Auto) 2200 [place] # (Auto) 400 Eos # (Auto) 100 Baso # (Auto) 0 Creatinine 0.70 Estimated GFR > 60 PFSH Medical History Chronic back pain Hx of sleep apnea Hypertension Migraines Surgical History H/O abdominoplasty H/O shoulder surgery H/O: hysterectomy History of back surgery History of lumbar spinal fusion (09/21/21) Hx of gastric bypass Hx of plastic surgery Social History household members: none Smoking Status: Former smoker alcohol intake: current Discharge Assessment & Plan Assessment and Plan Assessment: -stable status post lumbar spine postoperative wound infection with Pseudomonas Plan of Treatment: -culture and sensitivity results are finalized and demonstrate Pseudomonas aeruginosa with wild sensitivities. Discussed with the pharmacist, we will change to oral Cipro 500 mg b.i.d. x1 week. -hold BP meds until blood pressure is greater than 120/80 -begin 24 hours of valacyclovir for recurrent fever blister -DC home today. Discharge Plan Discharge Plan Patient Disposition: Home Discharge orders & Medications Prescriptions: New docusate sodium 100 mg Capsule 100 mg PO BID PRN (Reason: Constipation from narcotic pain meds) Qty: 20 0RF oxycodone 5 mg Tablet 5 mg PO Q3HR PRN (Reason: Pain, Moderate (4-6)) Qty: 20 0RF valacyclovir 500 mg Tablet 1,000 mg PO BID Qty: 6 0RF ciprofloxacin HCl 500 mg tablet 500 mg PO BID 7 Days Qty: 14 0RF Rx Instructions: For wound infection, complete all pills Continued amitriptyline 75 mg Tablet 75 mg PO BEDTIME Qty: 0 lisinopril 20 mg Tablet 20 mg PO DAILY ropinirole 2 mg Tablet 2 mg PO BEDTIME Qty: 0 Rx Instructions: administer 1-3 hours before bedtime gabapentin 300 mg Capsule 300 mg PO DIRECTED Rx Instructions: 600mg qam, 300mg qnoon, 300mg qpm, 600mg hs ferrous sulfate 325 mg (65 mg iron) Capsule, Extended Release 325 mg PO DAILY atorvastatin 40 mg Tablet 40 mg PO DAILY rizatriptan 10 mg Tablet 10 mg PRN PRN (Reason: Pain (Scale Score 4-6)) Rx Instructions: for migraines cholecalciferol (vitamin D3) [Vitamin D3] 25 mcg (1,000 unit) Capsule 25 mcg PO DAILY Qty: 0 acetaminophen 325 mg Tablet 650 mg PO Q6HR PRN (Reason: Pain, Mild (1-3)) Qty: 360 0RF docusate sodium 100 mg Capsule 100 mg PO BID PRN (Reason: constipation) Qty: 60 1RF tramadol 50 mg Tablet 50 mg PO Q4H PRN (Reason: Pain, Moderate (4-6)) Qty: 120 0RF Label Comments: Doesnt always work for pain ascorbic acid (vitamin C) [Vitamin C] 1,000 mg Tablet 1,000 mg PO DAILY Follow up/Referrals: Haydee Lancaster PA-C [Primary Care Provider] - Hussain Millard MD [Physician] - (In 7-10 days for postoperative wound check) Discharge Health Status Multidrug resistant organism: No MDRO Diet/Activity/Treatments Diet: Diet as Tolerated Other treatments: Dressing/Wound care: -Keep dressing in place until postoperative follow-up office visit. -Okay to shower. Keep wound out of direct water stream. Can use PressNSeal plastic wrap to protect from shower stream. No soaking or submerging until all the scabs fall off (approximately 6 weeks). -Please call the office if dressing becomes wet, soiled, or saturated. Activities: -Limit bending, lifting, twisting x6 weeks. No deep bending (more than 90 degrees) or twisting at the waist. No lifting > 20 pounds. -Walk frequently. -Weight-bearing as tolerated. Use front wheeled walker, and progress to cane when safe. -Continue with home exercises as directed by your physical therapist. -Ice your incision as needed for pain/inflammation/swelling. Protect your skin with a folded pillowcase. -Incentive Spirometer (breathing device from hospital): 5-10xs every hour while awake for the first 1-2 weeks. Follow-up: -Follow-up with your surgeon or PA in the office in 10-14 days after surgery. -Follow-up with your surgeon 6 weeks postoperatively. Call the office if you have chest pain, shortness of breath, significant swelling that will not resolve with elevating, fever over 101?, significantly worsening pain, or are concerned you might need to go to the Emergency Room. [facility]: [phone] Skin/Wound/Dressing Care Report to your healthcare provider any signs of infection, such as:: chills, fever, night sweats, unusual drainage and unusual redness Visit Report/Discharge Packet Instructions: DI for Incision and Drainage, DI for Prescription Opioid Use Stand Alone Forms: Surgery Discharge Discharge Data Primary Care Provider: Haydee Lancaster
--- NOTE | 2021-11-26 11:52 | CM.DPC ---
DCP Cont: Per MD, pt medically stable for discharge. Pt to discharge home on IV abx. No other needs. Family POV to transport. Yany Henderson RN/DCP
[2021-11-26] MEDS: GABAPENTIN 300 MG CAPSULE PO (11:54)
[2021-11-26] MEDS: valACYclovir 500 MG TABLET 1000 MG PO (11:55)
[2021-11-26] MEDS: CIPROFLOXACIN 250 MG TABLET 500 MG PO (11:55)
--- NOTE | 2021-11-26 12:16 | PC.NURSE ---
IV removed. Pt is getting dressed and packed up for discharge home with Parent (Mother-Marcelle). Went over d/c instructions with Pt -discussed d/c meds, time of last dose, reviewed stroke education, s/s of infection, reminded Pt to take full course of abx as ordered, discussed showering, keeping dsg dry and intact until follow up, no driving while on narcotics, drink plenty of fluids to prevent constipation or dehydration and follow up as scheduled. Reviewed back precautions as well.
--- NOTE | 2021-11-26 12:43 | PC.NURSE ---
Pt out via w/c by [employer] to POV with Family and all belongings.
== END 2021-11-26 13:10 | disposition home or self-care (01) | DRG 857 ==
PROVIDERS: Physician Assistant; Admitting Provider Orthopaedic Surgery Orthopaedic Surgery of the Spine; PCP Physician Assistant; Referring Provider Orthopaedic Surgery Orthopaedic Surgery of the Spine; Visit Provider Orthopaedic Surgery Orthopaedic Surgery of the Spine
PROC: 0JB70ZZ Excision of Back Subcutaneous Tissue and Fascia, Open Approach (ICD-10-PCS; CPT 10180; principal; 2021-11-24 16:00)
DX: T81.42XA Infection following a procedure, deep incisional surgical site, initial encounter (principal); T81.31XA Disruption of external operation (surgical) wound, not elsewhere classified, initial encounter; B96.5 Pseudomonas (aeruginosa) (mallei) (pseudomallei) as the cause of diseases classified elsewhere; I10 Essential (primary) hypertension; G43.909 Migraine, unspecified, not intractable, without status migrainosus; Z20.822 Contact with and (suspected) exposure to COVID-19; Z98.1 Arthrodesis status; Z87.891 Personal history of nicotine dependence
CPT/HCPCS: 36415; 82565; 85025; 87070; 87075; 87077; 87186; 87205; 87635; 97116; 97162; C9803; J0696; J1100; J1170; J2405; J2704

== ENCOUNTER 2022-11-03 07:38 | Inpatient (IN) | payer OTHER, SELFPAY ==
[2021-11-24 10:20] VITALS: BMI 31.3
[2022-10-28 13:56] VITALS: BMI 34.4
[2022-11-03] VITALS (12 sets, daily range): BP systolic 105–137; BP diastolic 50–83; PULSE 73–100; RESP 12–20; TEMP 35.6–36.7; O2SAT 92–100; BMI 34.4; BMI 35.0
--- NOTE | 2022-11-03 | DI.RAD.S_ITS ---
PROCEDURE: XR LUMBAR SPINE 2-3V INDICATIONS: L2-S1 HARDWARE TECHNIQUE: 4 intraoperative fluoroscopic views of the lumbar spine were acquired. COMPARISON: [facility], , XR LUMBAR SPINE 2-3V, 09/21/2021, 8:18. FINDINGS: Intraoperative fluoroscopic images of lumbar spine again shows posterior fusion hardware at L2 through S1 levels. Alignment of lumbar spine is not significantly changed from 09/21/2021 study. No gross hardware loosening or failure. IMPRESSION: Fluoro guidance was provided intraoperatively for L2 through S1 surgical hardware evaluation by the ordering physician. Dictated by: Andreas Collazo M.D. on 11/03/2022 at 14:27 Approved by: Andreas Collazo M.D. on 11/03/2022 at 14:28
--- NOTE | 2022-11-03 08:36 | PM.PREOP ---
Pre-operative Note Interval Note History & Physical reviewed/Exam performed by Physician: Yes Changes to H&P: No
[2022-11-03] MEDS: LACTATED RINGERS 1,000 ML 42 ML IV (08:39)
[2022-11-03] MEDS: CEFAZOLIN 2 GM/100 ML PREMIX 100 ML IV (09:43)
[2022-11-03] MEDS: BUPIVACAINE 0.25% (PF) 60 ML, EPINEPHrine 0.15 MG INJ (09:45)
--- NOTE | 2022-11-03 10:49 | PM.OP.1 ---
Operative Date/Time/Diagnoses Date of procedure: 11/03/22 Time of procedure: 09:00 Pre-op diagnosis: 1. L2-3, L3-4, L4-5, L5-S1 history of fusion with hardware loosening 2. L5-S1 pseudoarthrosis 3. Lumbar radiculopathy Post-op diagnosis: same Procedure & Clinicians Procedure: 1. L2-S1 posterior segmental instrumentation removal 2. L2-3, L3-4, L4-5, L5-S1 revision laminectomy with exploration of fusion 3. L2-3, L3-4, L4-5, L5-S1 posterior segmental instrumentation with pedicle screw placement 4. L5-S1 posterolatearl fusion 5. [place] of bone marrow from iliac crest through a separate incision 6. Wound irrigation and debridement including soft tissue, bone and hardware Same procedure as scheduled: Yes Indications: Patient has been having chronic back pain and worsening lumbar radiculopathy. Patient had history of lumbar revision fusion with worsening back pain and CT evidence of hardware loosening and possible pseudoarthrosis. Patient failed multiple conservative management with worsening pain in her back, weakness and numbness in her lower extremity. Patient has been having difficulty performing activity of daily living. After discussing risks benefits of treatment options, patient elected proceed with surgery. Surgeon: Hussain Millard Textile Colorist Formulator: Ibeth Cortes Click Yes if Unassisted: No Anesthesia Type: General Operative Notes Closure Type: primary Specimen(s): none sent Prosthetic devices, grafts, tissues, transplants, or devices: Globus revolve and CREO MIS screws, DBM bone graft Estimated Blood Loss (mL): 50 Blood products transfused: none Procedure in detail: Patient was seen in the preoperative area. Risks and benefits of the surgery was discussed with the patient. Informed consent was obtained from the patient and placed in the chart. Surgical site was marked. Patient was taken to the operative room. General anesthesia was administered. Prophylactic antibiotic was given to the patient less than 30 min before the incision was made. Patient was placed into a prone position on the Deni table. Patient's back was then prepped and draped in the sterile fashion. Time-out was performed at this time. Using patient's previous scar incision was made over the L2-3, L3-4, L4-5, L5-S1 interval on the left side. Fascia was incised in line with skin incision. During the dissection through the subcutaneous tissue, there was a small seroma approximately 1 cc in the subcutaneous layer. Culture was taken from the seroma and will be sent to lab for analysis. Patient's previously placed hardware over the L2-3, L3-4, L4-5, L5-S1 level was identified by dissecting down to the level the hardware using a Bovie and a Christesnen. The locking caps which was removed using globus screwdriver. The locking jeanie was then removed from the [place] of the pedicle screws using a Destiny. The pedicle screws were then removed using the screwdriver. The screws were found to be loose concerning for pseudoarthrosis. The fusion mass on the left side was exposed by performing a left-sided hemilaminectomy at L2-3, L3-4, 5-S1 level. The hemilaminectomy was performed using the Kerrison rongeur to undercut the lamina as well removing additional epidural scar tissue for purpose of decompressing the epidural space. The fusion mass was explored and was found have visible motion indicating pseudoarthrosis at L5-S1 level The fusion at L2-3, L3-4, L4-5 was found to be solid. Using the power drill, posterior-lateral decortication was performed at L5-S1 level until bleeding cortical bone was identified. The remaining bone grafting material was placed into the L5-S1 posterior lateral gutter he order to accomplish posterolateral fusion at the L5-S1 level to treat the pseudoarthrosis. Using the double C-arm technique, pedicle screws were placed into the L2, L3, L4, L5, S1 pedicles bilaterally. This was done by placing the Jamshidi needle into the pedicles, then placing the guidewires over the Jamshidi needle, and finally placing the cannulated screws over the guidewires bilaterally. After the pedicle screws were placed, 2 titanium rods was locked into the heads of the pedicle screws using locking caps and torque limiting screwdriver. S1 pedicle screws were increased to 10.5 mm in size. L3, L4 pedicle screws were increased to 7.5 mm in size. This is due to the significantly loosened purchase and inability to get acceptable purchase with smaller diameter screws. After all the hardware was placed, and confirmed with AP and lateral C-arm imaging, the wound was then irrigated with sterile normal saline infused with gentamicin and packed with Ray-Andreina gauze for 3 min to accomplish hemostasis. The wound was debrided using [place] rongeur of unhealthy appearing soft tissue bone and heterotopic bone adjacent to the hardware. After the gauze was removed the deep fascia was closed with #1 Vicryl suture. The subcutaneous layer was closed with 2-0 Vicryl. The skin was closed with skin keiko. Patient tolerated the procedure well. There were no complications. The Operation could not have been safely performed without compromising the technical result or length of the procedure, without the assistance of a skilled assistant professor surgical technology. The assistant professor surgical technology was medically necessary for proper positioning, retraction and manipulation of instruments, proper exposure, surgical preparation, and manipulation of tissue. Complications: none Post-operative Condition: stable Disposition: PACU Plan for aftercare: Admit to inpatient hospital
[2022-11-03] MEDS: HYDROMORPHONE 1 MG INJ IV ×5 (11:26→11:55)
[2022-11-03] MEDS: hydrOXYzine 50 MG/ML INJ 25 MG IM (11:34)
[2022-11-03] MEDS: OXYCODONE IR 5 MG TABLET PO (11:50)
[2022-11-03] MEDS: LACTATED RINGERS 1,000 ML 125 ML IV ×2 (13:01→20:57)
--- NOTE | 2022-11-03 13:32 | PC.NURSE ---
Pt to room 208 via bed from PACU. Pt is awake, alert, and oriented. Her Mother is at the bedside. SCD's are on and running. IVF infusing as ordered. Pt denies pain, nausea or shortness of breath. Assessment performed. Reminded Pt to not bend, lift or twist and to make sure to logroll in/out of bed. Pt now eating lunch. Pt oriented to room, call light, bed controls, and tv controls. Pt agrees to call for assistance as needed and to not get out of bed without staff help. Bed alarm on for safety.
[2022-11-03] MEDS: ACETAMINOPHEN 325 MG TABLET 650 MG PO ×2 (15:22→20:55)
[2022-11-03] MEDS: hydrOXYzine pamoate 25 MG CAPSULE PO (15:22)
--- NOTE | 2022-11-03 15:26 | OT.IP.EVAL ---
Current Diagnoses Unspecified fracture of unspecified lumbar vertebra, subsequent encounter for fracture with nonunion (11/03/22) Other mechanical complication of other internal orthopedic devices, implants and grafts, initial encounter (11/03/22) Surgery Performed Operation Date: 11/03/22 09:15 Actual Procedures p L2-S1 lumbar HWR, exporation of fusion, repeat laminectomy, reinsertion of hardware - Hussain Millard MD Past Medical History (Last Reviewed 11/26/21 @ 11:37 by Pam Vasquez PA-C) Chronic back pain Hx of sleep apnea Hypertension Migraines Surgical History (Last Updated 10/28/22 @ 14:17 by Cris Plasencia RN) H/O abdominoplasty H/O shoulder surgery H/O: hysterectomy History of back surgery History of lumbar spinal fusion (09/21/21) History of surgery (~2021) History of tonsillectomy and adenoidectomy (~1973) Hx of gastric bypass Hx of plastic surgery Occupational Therapy Inpatient Evaluation/Re-Eval M1 PT/OT-IP Prior Functional Status Start: 11/03/22 15:02 Freq: NEEDED Status: Active Protocol: Document 11/03/22 15:02 [facility] (Rec: 11/03/22 15:25 [facility] [id number]) Medical Review Prior Functional Status Communication Independent Activities of Daily Living and IADL's Pt had pain with ADl and IADL needs. Prior Functional Level (Other details) Pt lives on her parents property and her mother to be available 30/08 to assist. Social History Household Members none Living Arrangements House Number of Floors (Floors) Two Floors Number of Stairs To Enter/Railing? Pt able to stay on the main level and not having to go downstairs. Home Environment High Toilet,Walk in Shower Home Equipment Shower Seat with Backrest,Hand Held Shower,Dish Up Person,Grab Bars In Shower Additional Social History Comment Pt has an adjustable bed. M2 OT-IP Current Condition Start: 11/03/22 15:02 Freq: Status: Active Protocol: Document 11/03/22 15:02 [facility] (Rec: 11/03/22 15:25 [facility] [id number]) Occupational Therapy Current Condition Current Condition Evaluation Date 11/03/22 Treatment Diagnosis S/P L2-S1 hardware revision , exp fusion repeat L5-S1 PSF Diagnosis Onset Date 11/03/22 Post Operative Precautions Lumbar Precautions Log Roll,No Twisting,Limit Bending,Lifting Restriction of 10 lbs,Gait Belt above Incisional Area M3 OT- IP Subjective and Pain Start: 11/03/22 15:02 Freq: Status: Active Protocol: Document 11/03/22 15:02 [facility] (Rec: 11/03/22 15:25 [facility] [id number]) OT- Subjective Occupational Therapy Visit Type Type Initial Evaluation Visit Start Time 14:30 Visit Stop Time 15:02 Total Visit Minutes 32 Occupational Therapy Visit Comments Patient Comments Pt wanting to get up. Patient/Caregiver Goals To go home. OT Pain Assessment Pain When Pain Assessed During Mobility Pain Present Pain Present Pain Reported Location back Intensity 8 Scale Used Numeric (0 - 10) M4 OT- IP ADL's Start: 11/03/22 15:02 Freq: Status: Active Protocol: Document 11/03/22 15:02 [facility] (Rec: 11/03/22 15:25 [facility] [id number]) OT OUR-Algt-Efykota Comments OT Self-Feeding Comments Not at meal time. OT ADL-Grooming General Evaluation Grooming Ability Independent Areas Needing Assistance Retrieving/Set-up of Grooming Items,Face Washing Comments OT Grooming Comments WHile in bed able to wash her hands and face. OT ADL-Oral Care Comments Oral Care Comments Not performed. OT ADL-Dressing General Eval Lower Body Dressing Ability Maximum Assistance Areas Needing Assistance Socks Comments OT Dressing Comments Re-educated pt on benefit of having a sock aid and use of automatic dispenser mechanic for LB dressing needs. OT ADL-Toileting General Evaluation Toileting Ability Standby Assistance,Moderate Assistance Areas Needing Assistance Manage Clothing,Perform Perineal Hygiene Comments OT Toileting Comments Pt able to comfortably reach from the front to wipe after urinating. At this time pt will need assist after a bowel movement. Pt states prior wipes from the front.Suggested use of toilet paper aid if her mom is not around to help. OT ADL-Bathing Comments OT Bathing Comments Not performed. M5 OT- IP IADL's Start: 11/03/22 15:02 Freq: Status: Active Protocol: Document 11/03/22 15:02 [facility] (Rec: 11/03/22 15:25 [facility] [id number]) OT-Instrumental Activities of Daily Living Deficits IADL Deficits Identified Deficits Home Safety Awareness Awareness of Need for Assistance at Home Good Awareness Ability to Problem Solve Emergency Able to Problem Solve Situations Home Safety Comments Pt a little groggy at this time. Pt's mom to assist with her needs. Medication Management Medication Management Comments Pt's mom to assist her at home . Money Management Money Management Comments Pt's mom to assist. Meal Preparation Meal Preparation Caregiver Provides Assist Reduction Plant Supervisor Reduction Plant Supervisor Caregiver Provides Assist M6 OT- IP Functional Cognition Start: 11/03/22 15:02 Freq: Status: Active Protocol: Document 11/03/22 15:02 [facility] (Rec: 11/03/22 15:25 [facility] [id number]) Cognitive Factors Limiting Selfcare Function Cognitive Ability Level of Alertness Alert Patient Orientation Name,Age,Birthday,Month,Date, Year,Day of Week,Place, Situation Attention Span Ability Capable of Focused Attention, Capable of Sustained Attention Ability to Follow Commands Able to Follow One Step Commands Safety Awareness Decreased Recall of Precautions,Decreased Ability to Apply Precautions Cognitive Comments Cognitive Assessment Comments Pt needing reminders to recall her back precautions and incorporate especially during log rolling needs. Pt a bit groggy and sleepy during OT eval. OT- Vision and Hearing OT- Hearing Assessment OT- Hearing Assessment WFL M7 OT- IP Mobility and Balance Start: 11/03/22 15:02 Freq: Status: Active Protocol: Document 11/03/22 15:02 [facility] (Rec: 11/03/22 15:25 [facility] [id number]) OT- Bed Mobility Assessment Supine to Sit Supine to Sit Assist Contact Guard Assistance Sit to Supine Sit to Supine Assist Minimal Assistance OT-Transfer Assessment Sit to and From Stand Sit to and from Stand Contact Guard Assistance Transfers Transfer Ability Minimal Assistance Technique Transfer Destination Bed,Bedside Commode Transfer Technique Stand Step Pivot Devices Transfer Assistive Devices Gait Belt,Front Wheeled Walker Comments Mobility Comments Mainly vc and CGA to follow log rolling. Pt insists at home that she get up from bed with the HOB up. Pt needing MARINO to help guide her legs back into bed. BP sitting upright after use of toilet 103/49 and back in bed 103/49. Pt MARINO with FWW for the transfer. OT- Balance Assessment Sitting Balance and Reactions Static Sitting Balance Ability Good Dynamic Sitting Balance Ability Good Standing Balance and Reactions Static Standing Balance Ability Good Dynamic Standing Balance Ability Fair M9 OT- IP Assessment and Plan Start: 11/03/22 15:02 Freq: Status: Active Protocol: Document 11/03/22 15:02 [facility] (Rec: 11/03/22 15:25 [facility] [id number]) OT Summary Assessment and Plan Potential Rehabilitation Potential Good Analytic Complexity at Evaluation Low Summary OT Impairments Pain,Balance,Functional Mobility,Dressing,Toileting, Bathing,Toilet Transfers, Shower Transfers Progress Towards Goals Progressing Toward Goals,Slow Progress due to Medical Issues Assessment Summary Pt low complexity and main barrier is her pain, pt on 2L of O2 at 94% but just had surgery in the morning . Pt one person assist at this time for bed mobility and transfer with FWW. Suggested pt have a BSC, LB dressing equipment and toilet paper aid to assist with her needs at home. Pt's mom to be available 30/08. Pt to go home when medically stable. Goals Grooming Goal Independent Dressing Goal Independent Toileting Goal Independent Bathing Goal Independent Toilet Transfer Goal Independent Shower Transfer Goal Independent Patient/Caregiver Education Goal Caregiver Independent Assisting Patient Days to Meet Goals 7 Frequency of Treatment Frequency Of Treatment Once a Day Treatment Plan OT Treatment Plan ADL Training,Functional Mobility,Patient/Family Education,Discharge Planning Discharge Recommendations OT Discharge Recommendations Home with 30/08 Assist Available Home Equipment Needs BSC, LB dressing equipment, toilet paper aid Transportation Needs at Discharge Private Vehicle
--- NOTE | 2022-11-03 17:03 | PT.IIE ---
Current Diagnoses Unspecified fracture of unspecified lumbar vertebra, subsequent encounter for fracture with nonunion (11/03/22) Other mechanical complication of other internal orthopedic devices, implants and grafts, initial encounter (11/03/22) Surgery Performed Operation Date: 11/03/22 09:15 Actual Procedures p L2-S1 lumbar HWR, exporation of fusion, repeat laminectomy, reinsertion of hardware - Hussain Millard MD Surgical History (Last Updated 10/28/22 @ 14:17 by Cris Plasencia RN) H/O abdominoplasty H/O shoulder surgery H/O: hysterectomy History of back surgery History of lumbar spinal fusion (09/21/21) History of surgery (~2021) History of tonsillectomy and adenoidectomy (~1973) Hx of gastric bypass Hx of plastic surgery Medical History (Last Reviewed 11/26/21 @ 11:37 by Pam Vasquez PA-C) Chronic back pain Hx of sleep apnea Hypertension Migraines Physical Therapy Inpatient Evaluation/Re-Eval M1 PT/OT-IP Prior Functional Status Start: 11/03/22 15:02 Freq: NEEDED Status: Active Protocol: Document 11/03/22 16:40 [facility] (Rec: 11/03/22 17:24 [facility] [id number]) Medical Review Prior Functional Status Communication Independent Activities of Daily Living and IADL's Pt had pain with ADl and IADL needs. Prior Functional Level (Other details) Pt lives on her parents property and her mother to be available 30/08 to assist. Social History Household Members none Living Arrangements House Number of Floors (Floors) Two Floors Number of Stairs To Enter/Railing? Pt able to stay on the main level and not having to go downstairs. Home Environment High Toilet,Walk in Shower Home Equipment Shower Seat with Backrest,Hand Held Shower,Button Sewing Machine Operator,Grab Bars In Shower Additional Social History Comment Pt has an adjustable bed. M2 PT-IP Current Condition Start: 11/03/22 17:05 Freq: NEEDED Status: Active Protocol: Document 11/03/22 16:40 [facility] (Rec: 11/03/22 17:24 [facility] [id number]) Physical Therapy Current Condition Current Condition Evaluation Date 11/03/22 Treatment Diagnosis L2-3-4-5-S1 TLIF Revision Onset Date 11/03/22 M3 PT-IP Subjective Start: 11/03/22 17:05 Freq: NEEDED Status: Active Protocol: Document 11/03/22 16:40 [facility] (Rec: 11/03/22 17:24 [facility] [id number]) Subjective Physical Therapy Visit Type Type Initial Evaluation Visit Start Time 16:40 Visit Stop Time 17:03 Total Visit Minutes 23 Notes Pt evaluated day-of surgery following L2-3-4-5-S1 TLIF instrumentation and revision. Pt underwent original TILF September 2021, however following surgery (02/25/22), unfortunately suffered a fall on an icy ramp outside her house, re-injuring back, and was found to have loosened and broken her hardware. Pt supine in bed with elevated HOB as therapist enters room, mother also present. Pt admits she was just up to the BSC with nursing and is pretty sore and fatigued, but is willing to at least get up to side of bed with PT. Number of MECHANIC FOREMAN Visits 0 Physical Therapy Visit Comments Patient Comments Pt reports feeling prettyu sore and fatigued overall, rates pain 8/10 at rest. Patient Goals Return home Therapy Pain Assessment Pain When Pain Assessed At Rest Pain Present Pain Present Pain Reported Location back Intensity 8 Scale Used Numeric (0 - 10) M4 PT-IP Mobility and Gait Start: 11/03/22 17:05 Freq: NEEDED Status: Active Protocol: Document 11/03/22 16:40 [facility] (Rec: 11/03/22 17:24 [facility] [id number]) PT-Bed Mobility Assessment Rolling Type of Rolling Log Rolling,Roll to Right Level of Assist Standby Assistance Supine to Sit Supine to Sit Standby Assistance Sit to Supine Sit to Supine Standby Assistance PT-Transfer Assessment Sit to and From Stand Sit to and from Stand Standby Assistance Equipment Transfer Assistive Device Bed Rail Comments Mobility Comments Pt performed log roll in bed well with no verbal cues, good sit<->stand transfers. Mild light-headed sensation upon standing that passed quickly. Pt not up for further activity at this time due to just getting up with nursing. PT-Balance Assessment Standing Balance and Reactions Static Standing Balance Ability Good Dynamic Standing Balance Ability Good Device Used None M5 PT-IP Objective Assessments Start: 11/03/22 17:05 Freq: NEEDED Status: Active Protocol: Document 11/03/22 16:40 [facility] (Rec: 11/03/22 17:24 [facility] [id number]) Orientation Orientation/Cognition Level of Alertness Alert Orientation Name,Birthday,Month,Date,Year, Place,Situation Safety Awareness Understands Safety Issues Memory Description No Deficits Noted Gross Range of Motion Lower Extremity ROM Assessment Within Functional Limits Strength Comments Strength Comments Able to lift LEs against gravity for removal of SCDs and bed mobility Sensation Assessment Sensation Gross Sensation WNL M6 PT-IP Treatment Start: 11/03/22 17:05 Freq: NEEDED Status: Active Protocol: Document 11/03/22 16:40 [facility] (Rec: 11/03/22 17:24 DC [id number]) Physical Therapy Treatment Education Education Provided Precautions,Post-Op Packet, Safety M7 PT-IP Assessment and Plan Start: 11/03/22 17:05 Freq: NEEDED Status: Active Protocol: Document 11/03/22 16:40 [facility] (Rec: 11/03/22 17:24 [facility] [id number]) PT Summary Assessment and Plan Potential Rehabilitation Potential Excellent Status of Condition at Evaluation Stable Summary Impairments Pain,ROM,Strength,Gait, Activity Tolerance Assessment Summary Pt doing very well during PT evaluation day-of surgery, however very fatigued and sore at start of evaluation due to just getting back in bed [place] [facility] [place] Performing bed mobility and transfers SBA without use of FWW. Pt able to verbalize spinal precautions with no cues, performed very good log roll to get to sitting EOB. Pt showing good safety awareness at this time. Appears to have very good family support available at home upon discharge, able to live on first floor of home with no KOFI, has appropriate home equipment, including an adjustable bed, 4WW, and a walk-in shower with a shower chair. Pt should benefit from further in-patient PT focusing on gait with and potentially without AD, but will likely be safe to return home when medically cleared for discharge. Goals Bed Mobility Goal Independent Transfer Goal Independent Gait Goal Independent,Front Wheel Walker Gait Distance 200 Days to Meet Goals 2 Frequency of Treatment Frequency Of Treatment Twice a Day Treatment Plan Physical Therapy Treatment Plan Gait Training,Therapeutic Exercise,Post Op Education, Discharge Planning, Neuromuscular Re-ed Precautions Lumbar Precautions Log Roll,No Twisting,Limit Bending,Lifting Restriction of 10 lbs,Gait Belt above Incisional Area Recommendations To Nursing Amount of Assist Needed 1 Person Assist Discharge Recommendations PT Discharge Recommendations Home with Assistance Transportation Needs at Discharge Private Vehicle
[2022-11-03] MEDS: CEFAZOLIN VIAL 3 GM in SODIUM CHLORIDE 0.9% 100 ML IV (17:10)
[2022-11-03] MEDS: GABAPENTIN 300 MG CAPSULE PO (17:10)
[2022-11-03] MEDS: OXYCODONE IR 10 MG TABLET PO ×2 (17:16→20:55)
[2022-11-03] MEDS: SENNOSIDES 8.6 MG TABLET 17.2 MG PO (20:49)
[2022-11-03] MEDS: AMITRIPTYLINE 25 MG TABLET 75 MG PO (20:49)
[2022-11-03] MEDS: ROPINIROLE 1 MG TABLET 2 MG PO (20:50)
[2022-11-03] MEDS: GABAPENTIN 600 MG TABLET PO (20:50)
[2022-11-03] MEDS: DOCUSATE 100 MG CAPSULE PO (20:50)
[2022-11-04] MEDS: CEFAZOLIN VIAL 3 GM in SODIUM CHLORIDE 0.9% 100 ML IV (01:13)
[2022-11-04] MEDS: OXYCODONE IR 10 MG TABLET PO ×3 (01:26→11:16)
--- NOTE | 2022-11-04 03:24 | PC.NURSE ---
Aquacel dressing saturated with red blood, reinforced with ABD pad and tape.
[2022-11-04] MEDS: LACTATED RINGERS 1,000 ML 125 ML IV (05:25)
--- NOTE | 2022-11-04 06:07 | PM.PNPO.1 ---
Subjective Subjective Date Patient Seen: 11/04/22 Time Patient Seen: 06:07 Exam Vital Signs (past 8 hours): Oxygen Delivery Method Nasal Cannula Oxygen Flow Rate 0 PFSH Medical History Chronic back pain Hx of sleep apnea Hypertension Migraines Surgical History (Updated 10/28/22 @ 14:17 by Cris Plasencia RN) H/O abdominoplasty H/O shoulder surgery H/O: hysterectomy History of back surgery History of lumbar spinal fusion (09/21/21) History of surgery (~2021) History of tonsillectomy and adenoidectomy (~1973) Hx of gastric bypass Hx of plastic surgery Social History household members: none Smoking Status: Former smoker alcohol intake: current Assessment & Plan Post-op Assessment and plan (1) S/P lumbar fusion: Assessment and Plan narrative: Pt has a h/o lumbar fusion in 2021 and the subsequent need for wound washout. At the time of surgery yesterday, a small, contained pocket of milky fluid was discovered in the subcutaneous space. This was cultured; GS showed no organisms, but aerobic and anaerobic cultures are pending. The fluid collection was pre-fascial and pt can be discharged home prior to final cultures coming back as deep infection is unlikely. Postoperative Procedures: Procedures Operation Date: 11/03/22 09:15 Actual Procedure Side Surgeon p L2-S1 lumbar HWR, exporation of fusion, repeat laminectomy, reinsertion of hardware Hussain Millard MD Quality VTE Deep Vein Thrombosis/Pulmonary Embolism Present on Admission: No
--- NOTE | 2022-11-04 06:34 | P.DS_ITS ---
History of Present Illness History of Present Illness Date Patient Seen: 11/04/22 Time Patient Seen: 06:34 Chief complaint: TLIF Narrative: Operative Date/Time/Diagnoses Date of procedure: 11/03/22 Time of procedure: 09:00 Pre-op diagnosis: 1. L2-3, L3-4, L4-5, L5-S1 history of fusion with hardware loosening 2. L5-S1 pseudoarthrosis 3. Lumbar radiculopathy Post-op diagnosis: same Procedure & Clinicians Procedure: 1. L2-S1 posterior segmental instrumentation removal 2. L2-3, L3-4, L4-5, L5-S1 revision laminectomy with exploration of fusion 3. L2-3, L3-4, L4-5, L5-S1 posterior segmental instrumentation with pedicle scre w placement 4. L5-S1 posterolatearl fusion 5. Kennedy of bone marrow from iliac crest through a separate incision 6. Wound irrigation and debridement including soft tissue, bone and hardware Same procedure as scheduled: Yes Indications: Patient has been having chronic back pain and worsening lumbar radiculopathy.? Patient had history of lumbar revision fusion with worsening back pain and CT evidence of hardware loosening and possible pseudoarthrosis. Patient failed multiple conservative management with worsening pain in her back,? weakness and numbness in her lower extremity.? Patient has been having difficulty performing activity of daily living.? After discussing risks benefits of treatment options, patient elected proceed with surgery. Surgeon: [facility] Administrator: Ibeth Cortes Click Yes if Unassisted: No Anesthesia Type: General Operative Notes Closure Type: primary Specimen(s): none sent Prosthetic devices, grafts, tissues, transplants, or devices: Globus revolve and CREO MIS screws, DBM bone graft Estimated Blood Loss (mL): 50 Blood products transfused: none Discharge Providers Provider Date of admission: 11/03/22 07:38 Discharge Date: 11/04/22 Primary care physician: Haydee Lancaster PA-C Consults: 11/03/22 12:25 Consult to Occupational Therapy Evaluate & Treat Comment: Physician Instructions: Evaluate and treat Consult to Physical Therapy Evaluate & Treat Comment: Physician Instructions: Evaluate and Treat Discharge provider: Ibeth Cortes PA-C Summary Hospital Course Discharge Diagnosis: L2-3, L3-4, L4-5, L5-S1 history of fusion with hardware loosening, L5-S1 pseudoarthrosis, Lumbar radiculopathy; s/p hardware revision on left Hospital Course: Ms Hebert's hospital course was unremarkable. On the morning of POD# 1 she was c/o incisional and left leg pain but felt she would be more comfortable at home. She was evaluated by PT on the day of surgery and they felt she was safe for discharge home, but did want to work with her again. She was eating and voiding without difficulty. Pt has a h/o lumbar fusion in 2021 and the subsequent need for wound washout. At the time of surgery yesterday, a small, contained pocket of milky fluid was discovered in the subcutaneous space. This was cultured; GS showed no organisms, but aerobic and anaerobic cultures are pending. The fluid collection was pre-fascial and pt can be discharged home prior to final cultures coming back as deep infection is unlikely. Exam Vital Signs (past 8 hours): Oxygen Delivery Method Nasal Cannula Oxygen Flow Rate 0 Narrative Exam Narrative: 5/5 strength in RLE. LLE 4/5 hip flexors, quadriceps, hamstrings; 5/5 DF, PF, EHL. Sensation to light touch intact throughout BLE; calves soft, compressible, nontender. Aquacel dressing saturated and changed; thin, dilute bloody drainage expressed from wound. There does not appear to be active bleeding. [facility] Medical History Chronic back pain Hx of sleep apnea Hypertension Migraines Surgical History (Updated 10/28/22 @ 14:17 by Cris Plasencia RN) H/O abdominoplasty H/O shoulder surgery H/O: hysterectomy History of back surgery History of lumbar spinal fusion (09/21/21) History of surgery (~2021) History of tonsillectomy and adenoidectomy (~1973) Hx of gastric bypass Hx of plastic surgery Social History household members: none Smoking Status: Former smoker alcohol intake: current Discharge Assessment & Plan Assessment and Plan Assessment: L2-3, L3-4, L4-5, L5-S1 history of fusion with hardware loosening, L5-S1 pseudoarthrosis, Lumbar radiculopathy; s/p hardware revision on left Plan of Treatment: She is on oxycodone/APAP 5/325 TID as prescribed by [facility] and will remain on this with additional oxycodone and hydroxyzine PRN from our office. I will also start her on a steroid taper for LLE pain. She has a history of gastric bypass and should NOT take NSAIDs. She was reminded to continue her vitamin and mineral supplements. Follow up in office in 2 weeks as scheduled. We will follow for culture results. Discharge Plan Discharge Plan Patient Disposition: Home Discharge orders & Medications Prescriptions: New oxycodone 5 mg tablet 5 mg PO Q4-6H PRN (Reason: pain, moderate) Qty: 60 0RF docusate sodium 100 mg Capsule 100 mg PO BID PRN (Reason: constipation) Qty: 60 1RF hydroxyzine pamoate 25 mg Capsule 25 mg PO Q4HR PRN (Reason: muscle spasm) Qty: 60 0RF methylprednisolone [Medrol (Mehdi)] 4 mg tablets,dose pack 4 mg PO DAILY Qty: 21 0RF Continued amitriptyline 75 mg Tablet 75 mg PO BEDTIME Qty: 0 lisinopril 20 mg Tablet 20 mg PO DAILY ropinirole 2 mg Tablet 2 mg PO BEDTIME Qty: 0 Rx Instructions: administer 1-3 hours before bedtime gabapentin 300 mg Capsule 300 mg PO DIRECTED Rx Instructions: 600mg qam, 300mg qnoon, 300mg qpm, 600mg hs atorvastatin 40 mg Tablet 40 mg PO DAILY rizatriptan 10 mg Tablet 10 mg PO PRN PRN (Reason: Pain (Scale Score 4-6)) Rx Instructions: for migraines acetaminophen 325 mg Tablet 650 mg PO Q6HR PRN (Reason: Pain, Mild (1-3)) Qty: 360 0RF ascorbic acid (vitamin C) [Vitamin C] 1,000 mg Tablet 1,000 mg PO DAILY ferrous sulfate [Iron (ferrous sulfate)] 325 mg (65 mg iron) Tablet 325 mg PO DAILY oxycodone 5 mg tablet 2.5 mg PO BID Patient Comments: 5 mg orally every 3 hours As Needed for Pain, Severe (7-10) cholecalciferol (vitamin D3) [Vitamin D3] 125 mcg (5,000 unit) Tablet 250 mcg PO DAILY biotin 10 mg Tablet 10 mg PO DAILY calcium-vitamin D3-vitamin K [Viactiv] 650 mg-12.5 mcg-40 mcg Tablet,Chewable 1 tab PO DAILY Pharmacist Comment: Continue oxycodone/APAP 5/325, three pills/day as prescribed by [facility]. Use oxycodone prescribed by our office as needed for pain on top of that. Follow up/Referrals: Haydee Lancaster PA-C [Primary Care Provider] - Hussain Millard MD [Physician] - As previously scheduled (Follow up with Dr Millard on 11/16/2022 @ 3:[address] [facility] office in [place].) Diet/Activity/Treatments Diet: Diet as Tolerated Activity: No deep bending or twisting at the waist. No lifting more than 10 pounds. Cold/Heat Therapy: Heating pad to low back as needed for pain. Skin/Wound/Dressing Care Report to your healthcare provider any signs of infection, such as:: chills, fever, night sweats, unusual drainage and unusual redness Dressing: May shower. Keep dressing on until follow up in office. No bathing or otherwise soaking incision. Visit Report/Discharge Packet Instructions: DI for Transforaminal Lumbar Interbody Fusion, DI for Prescription Opioid Use Stand Alone Forms: Patient Portal/API, Stroke Signs & Symptoms, Surgery Discharge Discharge Data Primary Care Provider: Haydee Lancaster Quality VTE Deep Vein Thrombosis/Pulmonary Embolism Present on Admission: No
[2022-11-04 08:00] VITALS: BP 105/58; PULSE 70; RESP 16; TEMP 36; O2SAT 95
[2022-11-04] MEDS: FERROUS SULFATE 325 MG TABLET PO (08:29)
[2022-11-04] MEDS: DOCUSATE 100 MG CAPSULE PO (08:30)
[2022-11-04] MEDS: GABAPENTIN 600 MG TABLET PO (08:30)
[2022-11-04] MEDS: ASCORBIC ACID 500 MG TABLET 1000 MG PO (08:30)
[2022-11-04] MEDS: CALCIUM CARBONATE 500 MG TAB PO (08:30)
[2022-11-04] MEDS: ATORVASTATIN 20 MG TABLET 40 MG PO (08:30)
[2022-11-04] MEDS: DEXAMETHASONE 4 MG/ML VIAL IV (08:31)
[2022-11-04] MEDS: CHOLECALCIFEROL (VITAMIN D3) 5,000 UNIT TABLET 5000 UNIT PO (08:31)
[2022-11-04 09:00] VITALS: BP 105/58; PULSE 70
--- NOTE | 2022-11-04 09:09 | PT.IPTN ---
Current Diagnoses Unspecified fracture of unspecified lumbar vertebra, subsequent encounter for fracture with nonunion (11/03/22) Other mechanical complication of other internal orthopedic devices, implants and grafts, initial encounter (11/03/22) Arthrodesis status (11/03/22) Surgery Performed Operation Date: 11/03/22 09:15 Actual Procedures p L2-S1 lumbar HWR, exporation of fusion, repeat laminectomy, reinsertion of hardware - Hussain Millard MD Physical Therapy Treatment Note M2 PT-IP Current Condition Start: 11/03/22 17:05 Freq: NEEDED Status: Active Protocol: Document 11/03/22 16:40 DCW (Rec: 11/03/22 17:24 DCW [id number]) Physical Therapy Current Condition Current Condition Evaluation Date 11/03/22 Treatment Diagnosis L2-3-4-5-S1 TLIF Revision Onset Date 11/03/22 M3 PT-IP Subjective Start: 11/03/22 17:05 Freq: NEEDED Status: Active Protocol: Document 11/04/22 10:43 TS (Rec: 11/04/22 10:56 TS [id number]) Subjective Physical Therapy Visit Type Type Progress Note Visit Start Time 09:09 Visit Stop Time 09:28 Total Visit Minutes 19 Number of CENTER MACHINE SET UP OPERATOR Visits 1 Physical Therapy Visit Comments Patient Comments Pt found resting in bed, agreeable to PT. Patient Goals Return home Therapy Pain Assessment Pain When Pain Assessed At Rest Pain Present Pain Present Pain Reported M4 PT-IP Mobility and Gait Start: 11/03/22 17:05 Freq: NEEDED Status: Active Protocol: Document 11/04/22 10:43 TS (Rec: 11/04/22 10:56 TS [id number]) PT-Bed Mobility Assessment Rolling Type of Rolling Log Rolling,Roll to Right Level of Assist Standby Assistance Supine to Sit Supine to Sit Standby Assistance Sit to Supine Sit to Supine Standby Assistance Scooting Scooting to Edge of Bed Standby Assistance PT-Transfer Assessment Sit to and From Stand Sit to and from Stand Standby Assistance Equipment Transfer Assistive Device Gait Belt,Front Wheeled Walker Comments Mobility Comments Pt recalled 3/3 spinal precautions prior to mobility. Logroll to L side SBA, demonstrates good awareness of spinal precautions. Supine to sit with HOB elevated SBA with use of BUE support. Sit to stand with FWW SBA, pt has good standing balance with no retroleaning. She ambulated in hallway ~300' SBA with slow step thru gait, c/o pain in L hip. Pt ambulated back back to room, sit to supine SBA into bed. Pt was left in bed with call light nearby, all needs met. Gait Assessment Gait Gait Assistance Required: Standby Assistance Distance (Feet) 300 Assistive Devices Assistive Device Gait Belt,Front Wheeled Walker Gait Deviations General Gait Pattern Decreased Stride Length, Decreased Feet Clearance Factors Limiting Gait Function Factors Limiting Gait Function Decreased Activity Tolerance, Decreased Strength,Limited Range of Motion,Pain Comments Gait Comments See mobility comments. Stair Climbing Assessment Comments Stair Climbing Comments No stairs PT-Balance Assessment Sitting Balance and Reactions Static Sitting Balance Ability Good Dynamic Sitting Balance Ability Good Standing Balance and Reactions Static Standing Balance Ability Good Dynamic Standing Balance Ability Good Device Used FWW M5 PT-IP Objective Assessments Start: 11/03/22 17:05 Freq: NEEDED Status: Active Protocol: Document 11/03/22 16:40 DCW (Rec: 11/03/22 17:24 DCW [id number]) Orientation Orientation/Cognition Level of Alertness Alert Orientation Name,Birthday,Month,Date,Year, Place,Situation Safety Awareness Understands Safety Issues Memory Description No Deficits Noted Gross Range of Motion Lower Extremity ROM Assessment Within Functional Limits Strength Comments Strength Comments Able to lift LEs against gravity for removal of SCDs and bed mobility Sensation Assessment Sensation Gross Sensation WNL M6 PT-IP Treatment Start: 11/03/22 17:05 Freq: NEEDED Status: Active Protocol: Document 11/04/22 10:43 TS (Rec: 11/04/22 10:56 TS [id number]) Physical Therapy Treatment Education Education Provided Precautions,Post-Op Packet, Safety M7 PT-IP Assessment and Plan Start: 11/03/22 17:05 Freq: NEEDED Status: Active Protocol: Document 11/04/22 10:43 TS (Rec: 11/04/22 10:56 TS [id number]) PT Summary Assessment and Plan Potential Rehabilitation Potential Excellent Summary Impairments Pain,ROM,Strength,Gait, Activity Tolerance Progress Towards Goals Progressing Toward Goals Assessment Summary Yolanda is progressing well with her mobility. She is SBA for all bed mobility and sit to stands with FWW. She progressed her gait to ~300' SBA with FWW. She demonstrated good awareness of her spinal precautions with mobility this session and recalled 3/3. PT is recommending pt return home with assist. Goals Bed Mobility Goal Independent Transfer Goal Independent Gait Goal Independent,Front Wheel Walker Gait Distance 200 Days to Meet Goals 2 Frequency of Treatment Frequency Of Treatment Twice a Day Treatment Plan Physical Therapy Treatment Plan Gait Training,Therapeutic Exercise,Post Op Education, Discharge Planning, Neuromuscular Re-ed Precautions Lumbar Precautions Log Roll,No Twisting,Limit Bending,Lifting Restriction of 10 lbs,Gait Belt above Incisional Area Recommendations To Nursing Amount of Assist Needed 1 Person Assist Discharge Recommendations PT Discharge Recommendations Home with Assistance Transportation Needs at Discharge Private Vehicle
[2022-11-04] MEDS: GABAPENTIN 300 MG CAPSULE PO (11:16)
[2022-11-04] MEDS: ACETAMINOPHEN 325 MG TABLET 650 MG PO (11:17)
--- NOTE | 2022-11-04 12:27 | PC.NURSE ---
Worked with PT this morning, cleared for discharge. Discharge education given to patient and mother, patient and mother verbalized understanding and all questions answered. IV removed. Aquacel drsg is clean, dry, intact. Patient is tolerating ambulation well w/ FWW. All belongings are with patient, no items locked in safe. Patient escorted to private vehicle via wheelchair @ approximately 1200.
--- NOTE | 2022-11-04 13:13 | CM.DPNOTE ---
Initial DCP Assessment Note CONFIGURATION CONSULTANT reviewed chart and consulted in team rounds. Pt had d/c'd prior to this CONFIGURATION CONSULTANT being able to assess her f/f. Pt d/c'd home into the care of her mother as helping w/ADL's and home maintenance needs when pt returns home. No further d/c needs indicated at this time.
== END 2022-11-04 12:00 | disposition home or self-care (01) | DRG 460 ==
PROVIDERS: Admitting Provider Orthopaedic Surgery Orthopaedic Surgery of the Spine; PCP Physician Assistant; Referring Provider Physician Assistant Medical; Visit Provider Orthopaedic Surgery Orthopaedic Surgery of the Spine
PROC: 0SG3071 Fusion of Lumbosacral Joint with Autologous Tissue Substitute, Posterior Approach, Posterior Column, Open Approach (ICD-10-PCS; principal; 2022-11-03 09:15)
DX: T84.038A Mechanical loosening of other internal prosthetic joint, initial encounter (principal); M96.0 Pseudarthrosis after fusion or arthrodesis; M96.842 Postprocedural seroma of a musculoskeletal structure following a musculoskeletal system procedure; M54.16 Radiculopathy, lumbar region; M43.16 Spondylolisthesis, lumbar region; M48.061 Spinal stenosis, lumbar region without neurogenic claudication; M96.1 Postlaminectomy syndrome, not elsewhere classified; I10 Essential (primary) hypertension; Z87.891 Personal history of nicotine dependence
CPT/HCPCS: 72100; 76000; 87070; 87075; 87205; 97116; 97161; 97165; 97535; C1713; J0171; J0690; J1100; J1170; J2405; J2704; J3010; J3410